=== PATIENT | female | born 1960 | race Caucasian/White ===

== ENCOUNTER 2019-01-14 14:20 | Emergency (ER) | payer BC, OTHER ==
[~2019-01-14] VITALS: Ht 152.4 cm; Wt 56.7 kg
--- NOTE | 2019-01-14 14:26 | NUR ---
pt here with per . pt alert gcs 15. pt went to bathroom before i got pt from w/r. pt points to and c/o bilateral upper quads abd pain x 1 week. associated with nausea w/o vomiting . pt also denies diarrhea but relates increase in bms texture and amount saying she had a stool 3xs on way here. relates most of pain in urq abd. denies blood in stool.denies constipation. denies ua and vaginal c/os. pain rating 8. pt denies dyspnea and no acute sighns of dyspnea noted though pt has slight dry cough she relates to allergies. pt relates pain feels similiar to when she had her gall bladder checked a yr ago and she was told it does not need to come out yet. lungs cta bilaterally. abd soft nondistended tender to palpation rlq only on my exam including the epigastric area. pt instructed npo. done flora pt [id number].
--- NOTE | 2019-01-14 14:56 | ED GI ---
General Chief Complaint: Abdominal/GI Problems Stated Complaint: ABD PAIN Nursing Triage Note: abd pain x 1 week Sepsis Screen: No Definite Risk Source of Information: Patient, Family Exam Limitations: No Limitations History of Present Illness Date Seen by Provider: Jan 14, 2019 Time Seen by Provider: 14:54 Initial Comments This 58-year-old female presents with right upper quadrant pain and nausea for the last week. The patient states the discomfort and symptoms are similar to her Colace cystitis she had 2 years ago. The gallbladder was not removed. Patient denies dysuria frequency or flank pain. She denies vomiting diarrhea or constipation. Patient has had no associated cough or shortness of breath. She denies headache photophobia or stiff neck. Past medical history of significance includes poorly controlled diabetes. Allergies and Home Medications Allergies Coded Allergies: No Known Drug Allergies (Unverified , 01/14/19) Patient Home Medication List Home Medication List Reviewed: Yes Review of Systems Review of Systems Constitutional: No chills, No fever EENTM: No Double Vision Respiratory: Denies Cough Cardiovascular: Denies Chest Pain Gastrointestinal: Abdominal Pain (right upper quadrant); Denies Diarrhea; Nausea; Denies Vomiting Genitourinary: Drainage, Frequency, Flank Pain Musculoskeletal: No back pain Skin: No rash Psychiatric/Neurological: No Symptoms Reported Endocrine: No Symptoms Reported Hematologic/Lymphatic: No Symptoms Reported Past Cuvamrq-Qwighh-Epzwlq Hx Past Med/Social Hx: Reviewed Nursing Past Med/Soc Hx Patient Social History Alcohol Use: Denies Use Recreational Drug Use: No Smoking Status: Never a Smoker Recent Foreign Travel: No Contact w/Someone Who Travel: No Recent Infectious Disease Expo: No Physical Abuse: No Sexual Abuse: No Physical Exam Vital Signs Vital Signs - First Documented 01/14/19 14:26 Temp 98.6 Pulse 88 Resp 16 B/P (MAP) 179/72 (107) Pulse Ox 95 O2 Delivery Room Air Capillary Refill : Less Than 3 Seconds Height/Weight/BMI Height: 5'0" Weight: 125lbs. oz. 56.050346vl; BMI Method:Stated General Appearance: WD/WN, mild distress HEENT: normal ENT inspection Neck: full range of motion, supple Respiratory: lungs clear Cardiovascular: regular rate, rhythm Gastrointestinal: normal bowel sounds, soft, tenderness (right upper quadrant) Extremities: normal range of motion, non-tender, normal inspection Back: normal inspection Neurologic/Psychiatric: no motor/sensory deficits, alert Skin: normal color, warm/dry; No rash Progress/Results/Core Measures Results/Orders Lab Results Laboratory Tests Test 01/14/19 15:01 01/14/19 15:06 Range/Units Urine Color YELLOW Urine Clarity CLEAR Urine pH 8 5-9 Urine Specific Orient 1.015 L 1.016-1.022 Urine Protein NEGATIVE NEGATIVE Urine Glucose (UA) 2+ H NEGATIVE Urine Ketones NEGATIVE NEGATIVE Urine Nitrite NEGATIVE NEGATIVE Urine Bilirubin NEGATIVE NEGATIVE Urine Urobilinogen NORMAL NORMAL MG/DL Urine Leukocyte Esterase 1+ H NEGATIVE Urine RBC (Auto) NEGATIVE NEGATIVE Urine RBC NONE /HPF Urine WBC RARE /HPF Urine Squamous Epithelial Cells 2-5 /HPF Urine Crystals NONE /LPF Urine Bacteria NEGATIVE /HPF Urine Casts NONE /LPF Urine Mucus NEGATIVE /LPF Urine Culture Indicated NO White Blood Count 6.3 4.3-11.0 10^3/uL Red Blood Count 4.34 L 4.35-5.85 10^6/uL Hemoglobin 12.4 11.5-16.0 G/DL Hematocrit 37 35-52 % Mean Corpuscular Volume 86 80-99 FL Mean Corpuscular Hemoglobin 29 25-34 PG Mean Corpuscular Hemoglobin Concent 33 32-36 G/DL Red Cell Distribution Width 13.4 10.0-14.5 % Platelet Count 236 130-400 10^3/uL Mean Platelet Volume 10.5 H 7.4-10.4 FL Neutrophils (%) (Auto) 53 42-75 % Lymphocytes (%) (Auto) 35 12-44 % Monocytes (%) (Auto) 7 0-12 % Eosinophils (%) (Auto) 3 0-10 % Basophils (%) (Auto) 1 0-10 % Neutrophils # (Auto) 3.4 1.8-7.8 X 10^3 Lymphocytes # (Auto) 2.2 1.0-4.0 X 10^3 Monocytes # (Auto) 0.5 0.0-1.0 X 10^3 Eosinophils # (Auto) 0.2 0.0-0.3 10^3/uL Basophils # (Auto) 0.1 0.0-0.1 10^3/uL Sodium Level 137 135-145 MMOL/L Potassium Level 4.8 3.6-5.0 MMOL/L Chloride Level 99 98-107 MMOL/L Carbon Dioxide Level 23 21-32 MMOL/L Anion Gap 15 H 5-14 MMOL/L Blood Urea Nitrogen 23 H 7-18 MG/DL Creatinine 1.09 0.60-1.30 MG/DL Estimat Glomerular Filtration Rate 51 BUN/Creatinine Ratio 21 Glucose Level 210 H 70-105 MG/DL Calcium Level 9.9 8.5-10.1 MG/DL Corrected Calcium 8.5-10.1 MG/DL Total Bilirubin 0.3 0.1-1.0 MG/DL Aspartate Amino Transf (AST/SGOT) 34 5-34 U/L Alanine Aminotransferase (ALT/SGPT) 55 0-55 U/L Alkaline Phosphatase 85 40-136 U/L Total Protein 8.2 6.4-8.2 GM/DL Albumin 4.7 H 3.2-4.5 GM/DL Lipase 55 8-78 U/L My Orders Orders - AYDEN GODINEZ MD Ct Abdomen/Pelvis Wo (01/14/19 14:52) Cbc With Automated Diff (01/14/19 14:52) Comprehensive Metabolic Panel (01/14/19 14:52) Lipase (01/14/19 14:52) Ua Culture If Indicated (01/14/19 14:52) Ns Iv 1000 Ml (Sodium Chloride 0.9%) (01/14/19 15:00) Ondansetron Injection (Zofran Injectio (01/14/19 15:00) Medications Given in ED Current Medications Medications Dose Ordered Sig/Lary Route Start Time Stop Time Status Last Admin Dose Admin Ondansetron HCl 4 mg ONCE ONCE IVP 01/14/19 15:00 01/14/19 15:01 DC 01/14/19 15:09 4 MG Vital Signs/I&O 01/14/19 01/14/19 14:26 16:18 Temp 98.6 97.8 Pulse 88 84 Resp 16 12 B/P (MAP) 179/72 (107) 153/69 (97) Pulse Ox 95 97 O2 Delivery Room Air Room Air Blood Pressure Mean: 107 Progress Progress Note : Time: 16:27 Progress Note The patient's CT then pelvis film demonstrated evidence of acute pathology. The gallbladder was not well visualized because it was contracted. The patient's laboratory evaluation was similarly unremarkable. Patient was treated with 4 mg of Zofran and 50 g of fentanyl IV with good relief of her nausea and pain. I asked that she follow-up closely with her primary care physician, Dr. Estrada tomorrow and return if she had any further problems or questions. Departure Impression Primary Impression: Abdominal pain Qualified Codes: R10.11 - Right upper quadrant pain Additional Impression: Nausea alone Disposition: 01 HOME, SELF-CARE Condition: Improved Departure-Patient Inst. Decision time for Depature: 16:29 Referrals: SADAF LOCO MD (PCP/Family) Primary Care Physician Patient Instructions: Acute Abdomen (Belly Pain), Adult (DC) Add. Discharge Instructions: Zofran and Vicodin as prescribed. Follow-up with Dr. Loco tomorrow. Come back if any problems. All discharge instructions reviewed with patient and/or family. Voiced understanding. Scripts Hydrocodone Bit/Acetaminophen (Hydrocodone/Acetaminophen 5/325mg Tablet) 1 Tab Tab 1-2 EACH PO Q6H PRN for PAIN-MODERATE MDD 10 for 3 Days, #20 TAB 0 Refills Prov: AYDEN GODINEZ MD 01/14/19 Ondansetron (Ondansetron Odt) 4 Mg Tab.rapdis 4 MG PO Q4H PRN for NAUSEA/VOMITING, #14 TAB Prov: AYDEN GODINEZ MD 01/14/19 AYDEN GODINEZ MD Jan 14, 2019 14:56
--- NOTE | 2019-01-14 14:58 | NUR ---
pt to bathroom for ua.
[2019-01-14] MEDS ORDERED: NS IV 1000 ML 1,000 ML IV SCH (15:00)
[2019-01-14] MEDS ORDERED: ONDANSETRON 4 MG/2 ML (SDV) Z0FRAN IVP ONE (15:00)
--- NOTE | 2019-01-14 15:09 | NUR ---
ua and labs to lab byme
[2019-01-14 15:16] LABS: BASOPHILS # (AUTO) 0.1 10^3/uL (0.0-0.1); BASOPHILS % (AUTO) 1 % (0-10); EOSINOPHILS # (AUTO) 0.2 10^3/uL (0.0-0.3); EOSINOPHILS % (AUTO) 3 % (0-10); HEMATOCRIT 37 % (35-52); HEMOGLOBIN 12.4 G/DL (11.5-16.0); LYMPHOCYTES # (AUTO) 2.2 X 10^3 (1.0-4.0); LYMPHOCYTES % (AUTO) 35 % (12-44); MEAN CORPUSCULAR HEMOGLOBIN 29 PG (25-34); MEAN CORPUSCULAR HGB CONC 33 G/DL (32-36); MEAN CORPUSCULAR VOLUME 86 FL (80-99); MEAN PLATELET VOLUME 10.5 FL (7.4-10.4); MONOCYTES # (AUTO) 0.5 X 10^3 (0.0-1.0); MONOCYTES % (AUTO) 7 % (0-12); NEUTROPHILS # (AUTO) 3.4 X 10^3 (1.8-7.8); NEUTROPHILS % (AUTO) 53 % (42-75); PLATELET COUNT 236 10^3/uL (130-400); RED CELL DISTRIBUTION WIDTH 13.4 % (10.0-14.5); WHITE BLOOD COUNT 6.3 10^3/uL (4.3-11.0)
[2019-01-14 15:16] LABS: BILIRUBIN,URINE NEGATIVE (NEGATIVE); CLARITY,URINE CLEAR; COLOR,URINE YELLOW; GLUCOSE, URINE (UA) 2+ (NEGATIVE); KETONES,URINE NEGATIVE (NEGATIVE); LEUKOCYTE ESTERASE ,URINE 1+ (NEGATIVE); NITRITE,URINE NEGATIVE (NEGATIVE); PH,URINE 8 (5-9); PROTEIN,URINE NEGATIVE (NEGATIVE); UROBILINOGEN,URINE NORMAL (NORMAL)
[2019-01-14 15:28] LABS: BACTERIA,URINE NEGATIVE /HPF; WBC,URINE RARE /HPF
[2019-01-14 15:34] LABS: ALANINE AMINOTRANSFERASE 55 U/L (0-55); ALBUMIN 4.7 GM/DL (3.2-4.5); ALKALINE PHOSPHATASE 85 U/L (40-136); BILIRUBIN,TOTAL 0.3 MG/DL (0.1-1.0); BUN/CREATININE RATIO 21; CALCIUM 9.9 MG/DL (8.5-10.1); CARBON DIOXIDE 23 MMOL/L (21-32); CHLORIDE 99 MMOL/L (98-107); CREATININE SERUM 1.09 MG/DL (0.60-1.30); GFR ESTIMATED 51; GLUCOSE 210 MG/DL (70-105); LIPASE 55 U/L (8-78); POTASSIUM 4.8 MMOL/L (3.6-5.0); SODIUM 137 MMOL/L (135-145); TOTAL PROTEIN 8.2 GM/DL (6.4-8.2)
--- NOTE | 2019-01-14 16:06 | NUR ---
pt to bathroom. i was going to save a bm in case it was diarrhea. pt had 1 very small piece bm that was normal looking solid brown. pt says that is what shes been doing. none saved.
--- NOTE | 2019-01-14 16:16 | NUR ---
pt remains alert gcs 15. not in room currently. pt still c/o abd pain rating 7. denies nausea and no v/d noted in er visit thus far. denies dyspnea and no acute sighns of dyspnea noted. ivf has 175 ml gone from the liter.
--- NOTE | 2019-01-14 16:17 | Diagnostic Imaging Report ---
PROCEDURE: CT abdomen and pelvis without contrast. TECHNIQUE: Multiple contiguous axial images were obtained through the abdomen and pelvis without the use of intravenous contrast. Auto Exposure Controls were utilized during the CT exam to meet ALARA standards for radiation dose reduction. INDICATION: Upper abdominal pain. COMPARISON: None available. FINDINGS: Absence of intravenous contrast decreases sensitivity for detection of lymphadenopathy, focal lesions and vascular pathology. There is mild focal bronchiectasis in the medial basal segment of the right lower lobe, with ill-defined surrounding consolidation. No pleural effusion. Visualized heart is normal in size. The liver, spleen, pancreas, and adrenal glands are unremarkable. The gallbladder is contracted and not well evaluated. There is no calcified gallstone, gallbladder wall thickening, or pericholecystic fluid. No biliary ductal dilatation is demonstrated. The kidneys are symmetric in size, without evidence of hydronephrosis on either side. Punctate bilateral nonobstructing calyceal calculi are demonstrated in both collecting systems. There are multiple right renal cysts. No abnormality in the visualized ureters. The small bowel and colon are normal in course and caliber, without evidence of wall thickening or obstruction. The appendix is not definitely visualized and presumably surgically absent. There is no pneumoperitoneum, abdominal free fluid, or loculated collection. There is mild calcified atherosclerotic plaque involving the abdominal aorta, without aneurysmal dilatation. Marked vascular calcifications are noted throughout the abdomen. No lymphadenopathy is appreciated. No bladder abnormality is demonstrated. There is a bulky fibroid uterus, with multiple partially calcified fibroids demonstrated. No pelvic free fluid or adnexal mass is appreciated. The abdominal wall is unremarkable. Degenerative changes involve the spine. No acute osseous abnormality is identified. IMPRESSION: No acute abdominal or pelvic pathology. No findings to account for the patient's symptoms. Incidental and chronic findings are detailed above. Dictated by: Dictated on workstation # [id number]
[2019-01-14 16:18] VITALS: BP 153/69
[2019-01-14] MEDS ORDERED: fentaNYL INJECTION 100 MCG/2 ML AMP IVP ONE (16:30)
[2019-01-14] MEDS ORDERED: ONDA4TAB11 PO (16:31)
[2019-01-14] MEDS ORDERED: ACHD5005 PO (16:33)
[2019-01-14 16:43] VITALS: BP 153/69
--- NOTE | 2019-01-14 16:43 | NUR ---
d/c instructions to pt. told to read all papers. scripts paper only given. pt left in w/c i took pt to w/r where been. told pt feels woozy from iv pain meds recently given. pt knows f/u. i went over the handtyped by information on the chart. iv d/cd by me prior to d/c.
== END 2019-01-14 16:43 | disposition home or self-care (01) ==
LOC: ER 14:22
DX: R10.11 Right upper quadrant pain (principal); R11.0 Nausea
CPT/HCPCS: 36415; 74176; 80053; 81000; 83690; 85025

== ENCOUNTER 2020-03-22 10:27 | Inpatient (IN) | payer BC ==
[~2020-03-22] VITALS: Ht 152 cm; Wt 59.6 kg
[~2020-03-22 10:27] MED LIST: ACHD5005 PO; ONDA4TAB11 PO
[2020-03-22] MEDS ORDERED: NITROGLYCERIN 0.4 MG SL TABS BTL 25'S SL PRN ×2 (11:00→15:30)
[2020-03-22] MEDS ORDERED: ASPIRIN 81 MG CHEW (CHILDREN'S ASA) PO ONE ×2 (11:00→16:00)
--- NOTE | 2020-03-22 11:00 | ED Chest Pain ---
General Chief Complaint: Chest Pain Stated Complaint: CHEST PAIN,NAUSEA, SOA, LT ARM NUMBNESS Nursing Triage Note: Has had intermittent chest pain since 1830 last night. Took tums with no relief. Associated with nausea, and is short of breath with walking. Has hx of HTN and diabetes. No previous heart issues. Is currently not having any pain, but describes the pain as pressure. Left arm is numb. Complaining of a headache. Has been recently sick with a sinus infection and was on antibiotics. Nursing Sepsis Screen: No Definite Risk Source: patient Exam Limitations: no limitations History of Present Illness Date Seen by Provider: Mar 22, 2020 Time Seen by Provider: 10:41 Initial Comments Patient is a 59-year-old female who presents to the emergency room today with a chief complaint of substernal chest pain and pressure. Patient states that she has had a sinus infection for the last couple of weeks but for the last couple of months has had intermittent chest pressure. Patient states that today the pain is radiating into her neck on the right side and also into her left arm. Patient describes numbness in her left arm. She has had some nausea associated with it as well as shortness of breath. Patient states that this seems to be exertional that her symptoms come on when she is doing something and tend to improve when she is at rest. Patient has a history of diabetes, longstanding with associated diabetic retinopathy. Patient states that her parents both at a young age. Her mother in her 50s from diabetes complications her father in his late 40s from cardiac complications. Bedside twelve-lead EKG shows a left bundle branch block, likely left atrial e nlargement; rate of 90, QTc 515, IA 150. Patient tells me that she also has a history of hypertension and hypercholesterolemia. Currently rates her chest pain at a "6". Patient recently finished 7d course of amoxicillin for "sinusitis". All other review of systems reviewed and negative except as stated. Allergies and Home Medications Allergies Coded Allergies: No Known Drug Allergies (Unverified , 01/14/19) Home Medications Hydrocodone Bit/Acetaminophen 1 Tab Tab, 1-2 EACH PO Q6H PRN for PAIN-MODERATE Prescribed by: AYDEN GODINEZ MD on 01/14/19 1633 Ondansetron 4 Mg Tab.rapdis, 4 MG PO Q4H PRN for NAUSEA/VOMITING Prescribed by: AYDEN GODINEZ MD on 01/14/19 1631 Patient Home Medication List Home Medication List Reviewed: Yes Review of Systems Review of Systems Constitutional: malaise, weakness (Generalized weakness) EENTM: Blurred Vision (Chronic, longstanding secondary to diabetic retinopathy, history of cataracts) Respiratory: Cough, SOA With Exertion Cardiovascular: Chest Pain Gastrointestinal: No Symptoms Reported Genitourinary: Burning (3 days) Musculoskeletal: no symptoms reported Skin: no symptoms reported Psychiatric/Neurological: Anxiety All Other Systems Reviewed Negative Unless Noted: Yes Past Dhwstaq-Iopuuv-Frzuse Hx Patient Social History Smoking Status: Never a Smoker Recent Foreign Travel: No Contact w/Someone Who Travel: No Recent Infectious Disease Expo: No Seasonal Allergies Seasonal Allergies: Yes Past Medical History Appendectomy High Cholesterol, Hypertension Diabetes, Insulin dep Depression Physical Exam Vital Signs Vital Signs - First Documented 03/22/20 10:39 Temp 36.8 Pulse 89 Resp 14 B/P (MAP) 191/76 (114) Pulse Ox 99 Capillary Refill : Less Than 3 Seconds Height, Weight, BMI Height: 5'0" Weight: 125lbs. oz. 56.023759ji; 25.00 BMI Method:Stated General Appearance: No Apparent Distress, Mild Distress Neck: Full Range of Motion Respiratory: Chest Non Tender, Lungs Clear, Normal Breath Sounds, No Accessory Muscle Use, No Respiratory Distress Cardiovascular: Regular Rate, Rhythm, No Edema, No Murmur, Normal Peripheral Pulses (2+ bilateral radial pulses) Gastrointestinal: Normal Bowel Sounds, Non Tender, Soft Extremity: Normal Capillary Refill, Normal Inspection, Normal Range of Motion Neurologic/Psychiatric: Alert, Oriented x3, No Motor/Sensory Deficits, Normal Mood/Affect Skin: Normal Color, Warm/Dry Critical Care Note Critical Care Start Time: 10:41 Stop Time: 12:00 Total Time (minutes) 40min critical care time in the evaluation and management of unstable angina; review of medical records, discussion with cardiology, admitting doctor. Management of chest pain and heparin. Progress/Results/Core Measures Results/Orders Lab Results Laboratory Tests Test 03/22/20 10:45 Range/Units White Blood Count 7.1 4.3-11.0 10^3/uL Red Blood Count 4.35 4.35-5.85 10^6/uL Hemoglobin 12.2 11.5-16.0 G/DL Hematocrit 37 35-52 % Mean Corpuscular Volume 84 80-99 FL Mean Corpuscular Hemoglobin 28 25-34 PG Mean Corpuscular Hemoglobin Concent 33 32-36 G/DL Red Cell Distribution Width 13.8 10.0-14.5 % Platelet Count 249 130-400 10^3/uL Mean Platelet Volume 10.3 7.4-10.4 FL Immature Granulocyte % (Auto) 0 % Neutrophils (%) (Auto) 61 42-75 % Lymphocytes (%) (Auto) 28 12-44 % Monocytes (%) (Auto) 7 0-12 % Eosinophils (%) (Auto) 3 0-10 % Basophils (%) (Auto) 1 0-10 % Neutrophils # (Auto) 4.3 1.8-7.8 X 10^3 Lymphocytes # (Auto) 2.0 1.0-4.0 X 10^3 Monocytes # (Auto) 0.5 0.0-1.0 X 10^3 Eosinophils # (Auto) 0.2 0.0-0.3 10^3/uL Basophils # (Auto) 0.1 0.0-0.1 10^3/uL Immature Granulocyte # (Auto) 0.0 0.0-0.1 10^3/uL Prothrombin Time 12.3 12.2-14.7 SEC INR Comment 0.9 0.8-1.4 Activated Partial Thromboplast Time 26 24-35 SEC Sodium Level 140 135-145 MMOL/L Potassium Level 3.9 3.6-5.0 MMOL/L Chloride Level 102 98-107 MMOL/L Carbon Dioxide Level 26 21-32 MMOL/L Anion Gap 12 5-14 MMOL/L Blood Urea Nitrogen 18 7-18 MG/DL Creatinine 0.86 0.60-1.30 MG/DL Estimat Glomerular Filtration Rate > 60 BUN/Creatinine Ratio 21 Glucose Level 130 H 70-105 MG/DL Calcium Level 9.5 8.5-10.1 MG/DL Corrected Calcium 9.1 8.5-10.1 MG/DL Magnesium Level 2.0 1.6-2.4 MG/DL Total Bilirubin 0.3 0.1-1.0 MG/DL Aspartate Amino Transf (AST/SGOT) 40 H 5-34 U/L Alanine Aminotransferase (ALT/SGPT) 43 0-55 U/L Alkaline Phosphatase 86 40-136 U/L Myoglobin 40.6 10.0-92.0 NG/ML Troponin I < 0.30 <0.30 NG/ML Total Protein 7.8 6.4-8.2 GM/DL Albumin 4.5 3.2-4.5 GM/DL My Orders Orders - LIZETH LOUIS MD Cbc With Automated Diff (03/22/20 10:50) Magnesium (03/22/20 10:50) Chest 1 View Ap/Pa Only (03/22/20 10:50) Ekg Tracing (03/22/20 10:50) Comprehensive Metabolic Panel (03/22/20 10:50) Myoglobin Serum (03/22/20 10:50) Protime With Inr (03/22/20 10:50) Partial Thromboplastin Time (03/22/20 10:50) O2 (03/22/20 10:50) Monitor-Rhythm Ecg Trace Only (03/22/20 10:50) Lipid Panel (03/23/20 06:00) Aspirin Chewable Tablet (Baby Aspirin Ch (03/22/20 11:00) Nitroglycerin 0.4 Mg Btl 25's (Nitrostat (03/22/20 11:00) Ed Iv/Invasive Line Start (03/22/20 10:50) Heparin Injection (Heparin Injection) (03/22/20 11:00) Troponin I Fs (03/22/20 10:50) Heparin Drip 07807 Unit/500ml (Heparin (03/22/20 12:34) Medications Given in ED Current Medications Medications Dose Ordered Sig/Lary Route Start Time Stop Time Status Last Admin Dose Admin Aspirin 324 mg ONCE ONCE PO 03/22/20 11:00 03/22/20 11:01 DC 03/22/20 11:01 324 MG Heparin Sodium (Porcine) 5,000 units ONCE ONCE IV 03/22/20 11:00 03/22/20 11:01 DC 03/22/20 11:01 5,000 UNITS Nitroglycerin 0.4 mg UD PRN SL 03/22/20 11:00 03/22/20 11:01 0.4 MG Vital Signs/I&O 03/22/20 10:39 Temp 36.8 Pulse 89 Resp 14 B/P (MAP) 191/76 (114) Pulse Ox 99 Blood Pressure Mean: 114 Progress Progress Note : Time: 11:04 Progress Note 59-year-old with a history of chest pain. Unstable angina presentation. Evaluation today includes a physical exam with the chest pain protocols. Patient is treated with baby aspirin, sublingual nitroglycerin and heparin bolus and drip. Patient rated her pain presentation a "6". Plan of care is to heparinize the patient and have her admitted pending laboratory studies. Patient does have a left bundle branch block on EKG with no old EKG for comparison. This is as well concerning for unstable angina/N STEMI. [address] Corbin on for [facility]. Accepts the patient for admission. Heparin drip initiated prior to transfer Initial ECG Impression Date: Mar 22, 2020 Initial ECG Impression Time: 10:32 Initial ECG Rate: 90 Initial ECG Rhythm: Normal Sinus Initial ECG Intervals: IA (150) Initial ECG Intervals Left bundle branch block Initial ECG Comparisson: No Previous ECG Available Diagnostic Imaging Diagonstic Imaging: Xray Plain Films/CT/US/NM/MRI: chest Comments [facility], [place] NAME: AGUILAR MAYNARD [facility] REC#: [id number] PT STATUS: REG ER : 1960 PHYSICIAN: LIZETH LOUIS MD ADMIT DATE: 03/22/20/ER FS Draft Date of Exam:03/22/20 CHEST 1 VIEW AP/PA ONLY Indication: Chest pain with cough and dyspnea. Comparison: None. Discussion: Single portable upright view of the chest was obtained. Patchy infiltrates are noted within the lung bases, concerning for pneumonia. Viral pneumonia should be excluded clinically. No pleural fluid or pneumothorax. Normal heart size. No osseous abnormality. Impression: 1. Patchy bibasilar infiltrates consistent with pneumonia. Viral pneumonia should be excluded clinically. Dictated on workstation # [id number] Dict: 03/22/20 1148 Trans: 03/22/20 1149 [facility] [id number] Interpreted by: LYNNE BLANCAS MD Electronically signed by: Departure Communication (Admissions) Time/Spoke to Consulting Phy: 11:41 Dr Chambers Discussed with Dr. Andino who recommends the patient be admitted to the ICU. Impression Primary Impression: Unstable angina Disposition: ADMITTED INPATIENT Condition: Stable Admissions Decision to Admit Reason: Admit from ER (General) Transfer Transfer Reason: Exceeds level of care Method of Transfer: EMS Departure-Patient Inst. Referrals: SADAF SEE MD (PCP/Family) Primary Care Physician LIZETH LOUIS MD Mar 22, 2020 11:00
[2020-03-22 11:07] LABS: BASOPHILS % (AUTO) 1 % (0-10); EOSINOPHILS % (AUTO) 3 % (0-10); HEMATOCRIT 37 % (35-52); HEMOGLOBIN 12.2 G/DL (11.5-16.0); LYMPHOCYTES % (AUTO) 28 % (12-44); MEAN CORPUSCULAR HEMOGLOBIN 28 PG (25-34); MEAN CORPUSCULAR HGB CONC 33 G/DL (32-36); MEAN CORPUSCULAR VOLUME 84 FL (80-99); MEAN PLATELET VOLUME 10.3 FL (7.4-10.4); MONOCYTES % (AUTO) 7 % (0-12); PLATELET COUNT 249 10^3/uL (130-400); WHITE BLOOD COUNT 7.1 10^3/uL (4.3-11.0)
[2020-03-22 11:08] LABS: BASOPHILS # (AUTO) 0.1 10^3/uL (0.0-0.1); EOSINOPHILS # (AUTO) 0.2 10^3/uL (0.0-0.3); MONOCYTES # (AUTO) 0.5 X 10^3 (0.0-1.0); NEUTROPHILS # (AUTO) 4.3 X 10^3 (1.8-7.8); NEUTROPHILS % (AUTO) 61 % (42-75)
[2020-03-22 11:19] LABS: SODIUM 140 MMOL/L (135-145)
[2020-03-22 11:20] LABS: ALANINE AMINOTRANSFERASE 43 U/L (0-55); ALBUMIN 4.5 GM/DL (3.2-4.5); ALKALINE PHOSPHATASE 86 U/L (40-136); BILIRUBIN,TOTAL 0.3 MG/DL (0.1-1.0); BUN/CREATININE RATIO 21; CALCIUM 9.5 MG/DL (8.5-10.1); CARBON DIOXIDE 26 MMOL/L (21-32); CHLORIDE 102 MMOL/L (98-107); CREATININE SERUM 0.86 MG/DL (0.60-1.30); GFR ESTIMATED > 60; GLUCOSE 130 MG/DL (70-105); POTASSIUM 3.9 MMOL/L (3.6-5.0); TOTAL PROTEIN 7.8 GM/DL (6.4-8.2)
[2020-03-22 11:22] LABS: INR 0.9 (0.8-1.4); PROTHROMBIN TIME PATIENT 12.3 SEC (12.2-14.7)
--- NOTE | 2020-03-22 11:49 | Diagnostic Imaging Report ---
Indication: Chest pain with cough and dyspnea. Comparison: None. Discussion: Single portable upright view of the chest was obtained. Patchy infiltrates are noted within the lung bases, concerning for pneumonia. Viral pneumonia should be excluded clinically. No pleural fluid or pneumothorax. Normal heart size. No osseous abnormality. Impression: 1. Patchy bibasilar infiltrates consistent with pneumonia. Viral pneumonia should be excluded clinically. Dictated by: Dictated on workstation # [id number]
[2020-03-22] MEDS ORDERED: HEParin DRIP 25000 UNIT/500ML 500 ML IV ONE ×2 (12:34→15:30)
[2020-03-22] MEDS ORDERED: morphine INJ 4 MG/ML 1 ML (VIAL/SYRINGE) IV PRN (15:30)
[2020-03-22] MEDS ORDERED: HEParin DRIP 25000 UNIT/500ML 500 ML IV SCH (15:30)
--- NOTE | 2020-03-22 15:58 | Consultation-Cardiology ---
HPI-Cardiology Cardiology Consultation: Date of Consultation 03/22/20 Time Seen by a Provider: 15:40 Date of Admission Attending Physician Ayden Corbin MD Admitting Physician Levon Loco MD Consulting Physician RHODA DIEGO MD, MA, FACP, FACC, FSCAI, CCDS HPI: Chief Complaint: CC: Chest discomfort HPI 59 yo woman with several days of intermittent chest discomfort: nearly daily, worst today, midsternal, pressure-like, mod to sev, radiation today to L shoulder and L neck, not associated with other symptoms, partially responsive to nitro in the ER, lasting up to several hours. No shortness of breath or palp or syncope or swelling Review of Systems-Cardiology Review of Systems Constitutional: malaise; No tiredness, No weight loss, No weight gain Eyes: No vision change Ears/Nose/Throat: No ear discharge, No nasal drainage, No recent hearing loss Respiratory: As described under HPI Cardiovascular: As described under HPI Gastrointestinal: No diarrhea, No nausea, No vomiting Genitourinary: No dysuria, No hematuria Musculoskeletal: No back pain, No joint pain Skin: No rash, No ulcerations Psychiatric/Neurological: No seizure, No focal weakness, No syncope Hematologic: No bleeding abnormalities WQU-Whejrh-Qrmazf Hx Past Medical History PMH As described under Assessment. Family Medical History Family Medical History: Does not report fam h/o early CAD Allergies and Home Medications Allergies Coded Allergies: No Known Drug Allergies (Unverified , 01/14/19) Home Medications Hydrocodone Bit/Acetaminophen 1 Tab Tab, 1-2 EACH PO Q6H PRN for PAIN-MODERATE Prescribed by: AYDEN GODINEZ MD on 01/14/19 1633 Ondansetron 4 Mg Tab.rapdis, 4 MG PO Q4H PRN for NAUSEA/VOMITING Prescribed by: AYDEN GODINEZ MD on 01/14/19 1631 Patient Home Medication List Home Medication List Reviewed: Yes Physical Exam-Cardiology Physical Exam Vital Signs/I&O 03/22/20 10:39 Temp 36.8 Pulse 89 Resp 14 B/P (MAP) 191/76 (114) Pulse Ox 99 Capillary Refill : Less Than 3 Seconds Constitutional: AAO x 3, well-developed, well-nourished HEENT: EOMI, hearing is well preserved Neck: carotid pulses are 2 + bilaterally, with good upstrokes Respiratory: No accessory muscle use; other (good bilateral air entry) Cardiovascular: regular rate-rhythm, S1 and S2, systolic murmur (soft VERONICA at card base) Gastrointestinal: No tender; soft; No guarding, No rebound; audible bowel sounds Extremities: No clubbing, No cyanosis, No significant edema Neurologic/Psychiatric: oriented x 3, other (moves all limbs equally) Skin: No rash on exposed areas, No ulcerations on exposed areas Data Review Labs Laboratory Tests 03/22/20 10:45: White Blood Count 7.1, Red Blood Count 4.35, Hemoglobin 12.2, Hematocrit 37, Mean Corpuscular Volume 84, Mean Corpuscular Hemoglobin 28, Mean Corpuscular Hemoglobin Concent 33, Red Cell Distribution Width 13.8, Platelet Count 249, Mean Platelet Volume 10.3, Immature Granulocyte % (Auto) 0, Neutrophils (%) (Auto) 61, Lymphocytes (%) (Auto) 28, Monocytes (%) (Auto) 7, Eosinophils (%) (Auto) 3, Basophils (%) (Auto) 1, Neutrophils # (Auto) 4.3, Lymphocytes # (Auto) 2.0, Monocytes # (Auto) 0.5, Eosinophils # (Auto) 0.2, Basophils # (Auto) 0.1, Immature Granulocyte # (Auto) 0.0, Prothrombin Time 12.3, INR Comment 0.9, Activated Partial Thromboplast Time 26, Sodium Level 140, Potassium Level 3.9, Chloride Level 102, Carbon Dioxide Level 26, Anion Gap 12, Blood Urea Nitrogen 18, Creatinine 0.86, Estimat Glomerular Filtration Rate > 60, BUN/Creatinine Ratio 21, Glucose Level 130H, Calcium Level 9.5, Corrected Calcium 9.1, Magnesium Level 2.0, Total Bilirubin 0.3, Aspartate Amino Transf (AST/SGOT) 40H, Alanine Aminotransferase (ALT/SGPT) 43, Alkaline Phosphatase 86, Myoglobin 40.6, Troponin I < 0.30, Total Protein 7.8, Albumin 4.5 03/22/20 15:42: Laboratory Tests 03/22/20 10:45 A/P-Cardiology Assessment/Admission Diagnosis Chest discomfort of undetermined etiology LBBB DM II H/o hypertension Discussion and Recomendations * Treat with bb and ASA and enoxaparin * Serial enzymes and ECG * If evidence of ACS, then cath * If no evidence of ACS, the noninvasive risk RHODA Schmidt MD [facility] CCDS Mar 22, 2020 15:58
[2020-03-22 16:01] VITALS: BP 191/76
[2020-03-22 16:02] LABS: INR 0.9 (0.8-1.4); PROTHROMBIN TIME PATIENT 12.7 SEC (12.2-14.7)
[2020-03-22] MEDS: ENOXAPARIN 60 MG/0.6 ML (LOVENOX) SYR SC SCH (16:38)
[2020-03-22] MEDS: NS IV 1000 ML 1,000 ML IV SCH (16:39)
[2020-03-22] MEDS: inSUlin ASPART (NovoLOG) 1 UNIT/0.01 ML (CHARGE PER UNIT) SC SCH ×2 (16:39→20:25)
[2020-03-22] MEDS ORDERED: FLU QUADRIvalent (3YOA+) 60 mcg/0.5 ml 2020-21 (AFLURIA) IM ONE (16:45)
[2020-03-22] MEDS: RT-ALBUTEROL SULF 2.5 MG/3 ML PRE-MIX VIAL INH SCH (20:41)
[2020-03-23 03:08] LABS: BASOPHILS # (AUTO) 0.1 10^3/uL (0.0-0.1); BASOPHILS % (AUTO) 1 % (0-10); EOSINOPHILS # (AUTO) 0.2 10^3/uL (0.0-0.3); EOSINOPHILS % (AUTO) 3 % (0-10); HEMATOCRIT 34 % (35-52); LYMPHOCYTES # (AUTO) 2.8 10^3/uL (1.0-4.0); LYMPHOCYTES % (AUTO) 37 % (12-44); MEAN CORPUSCULAR HEMOGLOBIN 28 pg (25-34); MEAN CORPUSCULAR HGB CONC 32 g/dL (32-36); MEAN CORPUSCULAR VOLUME 87 fL (80-99); MEAN PLATELET VOLUME 10.7 fL (9.0-12.2); MONOCYTES # (AUTO) 0.7 10^3/uL (0.0-1.0); MONOCYTES % (AUTO) 9 % (0-12); NEUTROPHILS % (AUTO) 51 % (42-75); PLATELET COUNT 218 10^3/uL (130-400); WHITE BLOOD COUNT 7.8 10^3/uL (4.3-11.0)
[2020-03-23 03:26] LABS: CALCIUM 8.5 MG/DL (8.5-10.1); CREATININE SERUM 0.98 MG/DL (0.60-1.30); POTASSIUM 5.4 MMOL/L (3.6-5.0)
[2020-03-23] MEDS: NS IV 1000 ML 1,000 ML IV SCH ×2 (03:40→12:19)
[2020-03-23] MEDS: ENOXAPARIN 60 MG/0.6 ML (LOVENOX) SYR SC SCH (03:40)
--- NOTE | 2020-03-23 04:25 | NUR ---
0350- Patient's blood sugar on morning labs is 65, patient given orange juice and peanut butter with crackers. 0425- This RN checked fingerstick glucose, blood sugar 131. Will continue to monitor.
[2020-03-23] MEDS: inSUlin ASPART (NovoLOG) 1 UNIT/0.01 ML (CHARGE PER UNIT) SC SCH ×2 (05:05→11:18)
[2020-03-23] MEDS ORDERED: MAGNESIUM 1 GM/100 ML IVPB 100 ML IV SCH (06:00)
[2020-03-23] MEDS ORDERED: KCL 20 MEQ TAB (K-DUR) PO SCH (06:00)
[2020-03-23] MEDS ORDERED: POTASSIUM CL 10MEQ/50ML IVPB 50 ML IV SCH (06:00)
--- NOTE | 2020-03-23 06:38 | Pulmonary Consultation ---
History of Present Illness History of Present Illness Date Seen by Provider: Mar 23, 2020 Time Seen by Provider: 06:35 Date of Admission Allergies and Home Medications Allergies Coded Allergies: No Known Drug Allergies (Unverified , 01/14/19) Home Medications Hydrocodone Bit/Acetaminophen 1 Tab Tab, 1-2 EACH PO Q6H PRN for PAIN-MODERATE Prescribed by: AYDEN GODINEZ MD on 01/14/19 1633 Ondansetron 4 Mg Tab.rapdis, 4 MG PO Q4H PRN for NAUSEA/VOMITING Prescribed by: AYDEN GODINEZ MD on 01/14/19 1631 Past Qvoprew-Zqzvdh-Ivtmcw Hx Patient Social History Alcohol Use: Denies Use Recreational Drug Use: No Smoking Status: Never a Smoker 2nd Hand Smoke Exposure: No Recent Foreign Travel: No Contact w/Someone Who Travel: No Recent Infectious Disease Expo: No Seasonal Allergies Seasonal Allergies: Yes Past Medical History Surgeries: Yes (rotator cuff; laser eye surgery) Appendectomy, Orthopedic Respiratory: No High Cholesterol, Hypertension Neurological: Yes Headaches /Migraines Genitourinary: No Gastrointestinal: No Musculoskeletal: Yes Arthritis Endocrine: Yes Diabetes, Insulin dep HEENT: No Cancer: No Psychosocial: Yes Depression Integumentary: No Review of Systems Time Seen by Provider: 06:38 Sepsis Event Evaluation Height, Weight, BMI Height: 5'0" Weight: 125lbs. oz. 56.079256qy; 25.00 BMI Method:Stated Exam Exam Vital Signs Date Time Temp Pulse Resp B/P (MAP) Pulse Ox O2 Delivery O2 Flow Rate FiO2 03/23/20 06:00 75 126/67 95 Room Air 03/23/20 05:00 81 128/68 98 Room Air 03/23/20 04:00 98 Room Air 03/23/20 04:00 78 144/72 97 Room Air 03/23/20 03:38 36.4 03/23/20 03:00 82 124/56 95 Room Air 03/23/20 02:00 73 104/59 97 Room Air 03/23/20 01:00 80 03/23/20 01:00 74 103/54 94 Room Air 03/23/20 00:00 77 92/60 98 Room Air 03/23/20 00:00 98 Room Air 03/23/20 00:00 36.5 03/22/20 23:00 79 103/52 91 Room Air 03/22/20 22:00 87 117/63 95 Room Air 03/22/20 21:00 89 143/75 99 Room Air 03/22/20 20:41 99 Room Air 03/22/20 20:00 98 Room Air 03/22/20 20:00 92 151/60 100 Room Air 03/22/20 19:39 37.3 87 103/41 98 Room Air 03/22/20 19:00 92 03/22/20 18:00 87 113/41 92 Room Air 03/22/20 17:39 97 92/60 100 Room Air 03/22/20 16:01 36.8 89 99 03/22/20 16:00 90 117/64 100 Room Air 03/22/20 15:00 99 Room Air 03/22/20 14:50 36.8 86 159/94 100 Room Air 03/22/20 14:10 91 17 179/73 99 03/22/20 10:39 36.8 89 14 191/76 (114) 99 I & O 03/23/20 07:00 Intake Total 1850 ml Output Total 750 ml Balance 1100 ml Height & Weight Height: 5'0" Weight: 125lbs. oz. 56.925937it; 25.00 BMI Method:Stated General Appearance: No Apparent Distress, Mild Distress Neck: Full Range of Motion Respiratory: Chest Non Tender, Lungs Clear, Normal Breath Sounds, No Accessory Muscle Use, No Respiratory Distress Cardiovascular: Regular Rate, Rhythm, No Edema, No Murmur, Normal Peripheral Pulses (2+ bilateral radial pulses) Capillary Refill: Less Than 3 Seconds Extremity: Normal Capillary Refill, Normal Inspection, Normal Range of Motion Neurologic/Psychiatric: Alert, Oriented x3, No Motor/Sensory Deficits, Normal Mood/Affect Skin: Normal Color, Warm/Dry Results Lab Laboratory Tests 03/22/20 10:45 03/23/20 02:55 Assessment/Plan Assessment/Plan Chest discomfort -CXR shows atelectasis vs infiltrate. No leukocytosis -Check BNP, PCT, UA LBB -Cardiology following DMII = LISETH ZAVALA DO Mar 23, 2020 06:38
[2020-03-23] MEDS ORDERED: FUROSEMIDE 40 MG/4 ML INJ (LASIX) IVP ONE (06:45)
[2020-03-23] MEDS: RT-ALBUTEROL SULF 2.5 MG/3 ML PRE-MIX VIAL INH SCH (07:44)
[2020-03-23] MEDS ORDERED: ASPIRIN 325 MG (5 GR) TABLET PO SCH (09:00)
[2020-03-23] MEDS ORDERED: ASPIRIN 81 MG CHEW (CHILDREN'S ASA) PO SCH (09:00)
--- NOTE | 2020-03-23 09:30 | Diagnostic Imaging Report ---
EXAMINATION: Chest radiograph, portable AP view. DATE: 03/23/2020 9:14 AM hours. INDICATION: 59-year-old female, dyspnea. COMPARISON: March 22, 2020. FINDINGS: Stable overall appearance of the cardiomediastinal silhouette. There is no identified pneumothorax. There is no large pleural effusion. There are mildly prominent pulmonary vascular markings. There are anchors in the right humeral head. IMPRESSION: 1. Mildly prominent pulmonary vascular markings which may reflect mild interstitial edema. Atypical infectious etiology is in the differential diagnosis. Dictated by: Dictated on workstation # [id number]
[2020-03-23 10:04] LABS: BILIRUBIN,URINE NEGATIVE (NEGATIVE); CLARITY,URINE CLEAR; COLOR,URINE YELLOW; GLUCOSE, URINE (UA) NEGATIVE (NEGATIVE); KETONES,URINE NEGATIVE (NEGATIVE); LEUKOCYTE ESTERASE ,URINE NEGATIVE (NEGATIVE); NITRITE,URINE NEGATIVE (NEGATIVE); PH,URINE 6.5 (5-9); PROTEIN,URINE NEGATIVE (NEGATIVE)
[2020-03-23 10:42] LABS: BACTERIA,URINE TRACE /HPF; RENAL EPITHELIAL CELLS,URINE RARE /HPF
[2020-03-23 11:02] LABS: CALCIUM OXALATE CRYSTALS,UR RARE /LPF
--- NOTE | 2020-03-23 12:06 | Short Stay Summary-Hospitalist ---
History of Present Illness HPI/Chief Complaint Patient is a 59-year-old female who presents to the emergency room today with a chief complaint of substernal chest pain and pressure. Patient states that she has had a sinus infection for the last couple of weeks but for the last couple of months has had intermittent chest pressure. Patient states that today the pain is radiating into her neck on the right side and also into her left arm. Patient describes numbness in her left arm. She has had some nausea associated with it as well as shortness of breath. Patient states that this seems to be exertional that her symptoms come on when she is doing something and tend to improve when she is at rest. Patient has a history of diabetes, longstanding with associated diabetic retinopathy. Patient states that her parents both at a young age. Her mother in her 50s from diabetes complications her father in his late 40s from cardiac complications. Bedside twelve-lead EKG shows a left bundle branch block, likely left atrial enlargement; rate of 90, QTc 515, MO 150. Patient tells me that she also has a history of hypertension and hypercholest erolemia. Currently rates her chest pain at a "6". Patient recently finished 7d course of amoxicillin for "sinusitis upon my arrival in the unit patient reports she is still having some chest pressure not as bad as last night. Serial troponin levels were negative and chest x-ray revealed some patchy infiltrate she denied chills or fever and oxygen saturation on room air was 96-97 percent. Rapid COVID testing was negative. Vital signs were stable and she was afebrile. She was discharged adv ised to take it easy due to likely viral bronchiolitis and that even though there was no evidence of for COVID she can still be contagious set appropriate social distancing etc. was recommended. She was advised to follow-up with her physician next week. She is to continue her home medication unchanged. Date Seen 03/23/20 Time Seen by a Provider: 10:00 Attending Physician Ayden Corbin MD PCP Sadaf Loco MD Referring Physician Date of Admission Mar 22, 2020 at 14:48 Home Medications & Allergies Home Medications Reviewed patient Home Medication Reconciliation performed by pharmacy medication reconciliations textile science technician and/or nursing. Patients Allergies have been reviewed. Allergies Allergies Coded Allergies No Known Drug Allergies (Unverified01/14/19) Past Tmemwgb-Nilfta-Wxklhf Hx Past Med/Social Hx: Reviewed and Corrections made Patient Social History Alcohol Use: Denies Use Recreational Drug Use: No Smoking Status: Never a Smoker 2nd Hand Smoke Exposure: No Recent Foreign Travel: No Contact w/other who traveled: No Recent Infectious Disease Expo: No Seasonal Allergies Seasonal Allergies: Yes Past Medical History Surgeries: Appendectomy, Orthopedic Cardiac: High Cholesterol, Hypertension Neurological: Headaches /Migraines Musculoskeletal: Arthritis Endocrine: Diabetes, Insulin dep Psychosocial: Depression Review of Systems Constitutional: see HPI Physical Exam Physical Exam Vital Signs Vital Signs - First Documented 03/22/20 03/22/20 10:39 14:50 Temp 36.8 Pulse 89 Resp 14 B/P (MAP) 191/76 (114) Pulse Ox 99 O2 Delivery Room Air Capillary Refill : Less Than 3 Seconds Height, Weight, BMI Height: 5'0" Weight: 125lbs. oz. 56.534696cj; 25.00 BMI Method:Stated General Appearance: No Apparent Distress, Mild Distress Neck: Full Range of Motion Respiratory: Chest Non Tender, Lungs Clear, Normal Breath Sounds, No Accessory Muscle Use, No Respiratory Distress Cardiovascular: Regular Rate, Rhythm, No Edema, No Murmur, Normal Peripheral Pulses (2+ bilateral radial pulses) Gastrointestinal: Normal Bowel Sounds, Non Tender, Soft Extremity: Normal Capillary Refill, Normal Inspection, Normal Range of Motion Neurologic/Psychiatric: Alert, Oriented x3, No Motor/Sensory Deficits, Normal Mood/Affect Skin: Normal Color, Warm/Dry Results Results/Procedures Labs Laboratory Tests 03/22/20 10:45 03/23/20 02:55 Patient resulted labs reviewed. Short Stay Diagnosis Discharge Diagnosis-Short Stay Admission Diagnosis 1. Viral bronchiolitis 2. Chest pain secondary to number 1 2. Type II diabetes mellitus Final Discharge Diagnosis same as admission diagnosis Conclusion Plan see H&P Clinical Quality Measures DVT/VTE Risk/Contraindication: Risk Factor Score Per Nursin RFS Level Per Nursing on Admit: 1=Low/No VTE PPX Copy Copies To 1: SADAF LOCO MD,AYDEN Mann MD Mar 23, 2020 12:06
--- NOTE | 2020-03-23 12:30 | NUR ---
pt to be d/c home pt up to void, iv d/c at this time. assisted pt in getting dressed.
--- NOTE | 2020-03-23 13:44 | Progress Note - Cardiology ---
Cardiology SOAP Progress Note Subjective: Mild upper midsternal discomfort is persistent, much less than yesterday Shortness of breath with exertion Gen malaise No palp or syncope or focal weakness No n/v/d Objective: I&O/Vital Signs 03/23/20 03/23/20 03/23/20 03/23/20 02:00 03:00 03:38 04:00 Temp 36.4 Pulse 73 82 78 B/P (MAP) 104/59 124/56 144/72 Pulse Ox 97 95 97 O2 Delivery Room Air Room Air Room Air 03/23/20 03/23/20 03/23/20 03/23/20 04:00 05:00 06:00 07:00 Pulse 81 75 76 B/P (MAP) 128/68 126/67 152/77 Pulse Ox 98 98 95 99 O2 Delivery Room Air Room Air Room Air Room Air 03/23/20 03/23/20 03/23/20 03/23/20 07:00 07:45 07:47 08:00 Temp 37.0 Pulse 74 79 B/P (MAP) 135/68 Pulse Ox 99 97 O2 Delivery Room Air Room Air 03/23/20 03/23/20 03/23/20 03/23/20 08:00 09:00 09:52 11:00 Pulse 80 83 81 B/P (MAP) 120/62 144/69 144/73 Pulse Ox 98 97 97 96 O2 Delivery Room Air Room Air Room Air Room Air 03/23/20 12:00 Pulse Ox 98 O2 Delivery Room Air 03/23/20 00:00 Intake Total 850 ml Output Total 250 ml Balance 600 ml Weight (Pounds): 125 Weight (Calculated Kilograms): 56.513649 Constitutional: AAO x 3, well-developed, well-nourished Respiratory: No accessory muscle use; other (good bilateral air entry) Cardiovascular: regular rate-rhythm, S1 and S2, systolic murmur (soft VERONICA at card base) Gastrointestional: No tender; soft; No guarding, No rebound; audible bowel sounds Extremities: No clubbing, No cyanosis, No significant edema Neurologic/Psychiatric: oriented x 3, other (moves all limbs equally) Skin: No rash on exposed areas, No ulcerations on exposed areas Results/Procedures: Labs Laboratory Tests 03/22/20 15:42: Prothrombin Time 12.7, INR Comment 0.9, Activated Partial Thromboplast Time 61H 03/22/20 16:34: Glucometer 121H 03/22/20 20:12: Glucometer 306H 03/23/20 02:55: White Blood Count 7.8, Red Blood Count 3.92, Hemoglobin 11.0L, Hematocrit 34L, Mean Corpuscular Volume 87, Mean Corpuscular Hemoglobin 28, Mean Corpuscular Hemoglobin Concent 32, Red Cell Distribution Width 14.1, Platelet Count 218, Mean Platelet Volume 10.7, Immature Granulocyte % (Auto) 0, Neutrophils (%) (Auto) 51, Lymphocytes (%) (Auto) 37, Monocytes (%) (Auto) 9, Eosinophils (%) (Auto) 3, Basophils (%) (Auto) 1, Neutrophils # (Auto) 4.0, Lymphocytes # (Auto) 2.8, Monocytes # (Auto) 0.7, Eosinophils # (Auto) 0.2, Basophils # (Auto) 0.1, Immature Granulocyte # (Auto) 0.0, Sodium Level 142, Potassium Level 5.4H, Chloride Level 107, Carbon Dioxide Level 21, Anion Gap 14, Blood Urea Nitrogen 18, Creatinine 0.98, Estimat Glomerular Filtration Rate 58, BUN/Creatinine Ratio 18, Glucose Level 65L, Calcium Level 8.5, Phosphorus Level 5.0H, Magnesium Level 2.0, B-Type Natriuretic Peptide 92.1, Procalcitonin 0.05 03/23/20 04:24: Glucometer 131H 03/23/20 05:04: Glucometer 162H 03/23/20 07:50: Urine Color YELLOW, Urine Clarity CLEAR, Urine pH 6.5, Urine Specific Smilax 1.015L, Urine Protein NEGATIVE, Urine Glucose (UA) NEGATIVE, Urine Ketones NEGATIVE, Urine Nitrite NEGATIVE, Urine Bilirubin NEGATIVE, Urine Urobilinogen 0.2, Urine Leukocyte Esterase NEGATIVE, Urine RBC (Auto) NEGATIVE, Urine RBC NONE, Urine WBC NONE, Urine Renal Epithelial Cells RARE, Urine Crystals NONE, Urine Calcium Oxalate Crystals RAREH, Urine Bacteria TRACE, Urine Casts NONE, Urine Mucus NEGATIVE, Urine Culture Indicated NO 03/23/20 10:15: Troponin I < 0.028 03/23/20 11:05: Coronavirus 2019 ([facility]) Negative 10/18/20 11:12: Glucometer 248H Laboratory Tests 03/22/20 10:45 03/23/20 02:55 A/P: Assessment: COVID PUI Chest discomfort of undetermined etiology, no evidence of ACS LBBB DM II H/o hypertension Plan: * I discussed her cardiac w/u with her. No evidence of ACS * Given risk factors and nonspecific symptoms, we have advised a stress test that can be undertaken as an outpt * I discussed her case with Dr Corbin on the phone this am RHODA DIEGO MD FACP FACC CCDS Mar 23, 2020 13:44
--- NOTE | 2020-03-24 05:43 | Physician Query Clarification ---
PQ-Uncertain Diagnosis Admission/Discharge Admission Date: Mar 22, 2020 at 14:48 Discharge Date: Mar 23, 2020 at 13:25 AYDEN Villalta MD The medical record reflects the following clinical scenario: History/Risk Factors: Patient is a 59-year-old female who presents to the emergency room today with a chief complaint of substernal chest pain and pressure ED physician note, 03/22: Unstable angina documented in ER impression. Cardiology progress notes, 03/23: Chest discomfort of undetermined etiology, no evidence of ACS Short stay summary, 03/23: Viral bronchiolitis, Chest pain secondary to Viral bronchitis, Type II diabetes mellitus Clinical Findings: BNP- 92.1 Treatment: Aspirin, Nitroglycerin Question: Is Unstable Angina a clinically valid diagnosis? Unstable Angina was documented in the ED Physician note, 03/22 with no further documentation in the medical record. Please document a response in Progress Note or Discharge Summary. 1. Yes, clinically valid, condition resolved. 2. No, condition ruled out. 3. Other, with explanation of clinical findings. 4. Undetermined, no explanation for clinical findings. PHYSICIAN RESPONSE Diagnosis clinically valid: No, conditon ruled out Please remember a lack of response to the above will prompt a phone page by CDI/Coding staff. In responding to this query, please exercise your independent professional judgment. The purpose of this communication is to more accurately reflect the complexity of your patients condition. The fact that a question is asked does not imply that any particular answer is desired or expected. Thank you for your timely response to this clarification. Requestors name: [ ] Phone # [ ] THIS PHYSICIAN QUERY FORM IS A PERMANENT PART OF THE MEDICAL RECORD PERRYRICARDO Mar 24, 2020 05:43 AYDEN RICHARD MD Mar 25, 2020 15:48
== END 2020-03-23 13:25 | disposition home or self-care (01) | DRG 203 ==
LOC: EDUNIT# 10:27 → ER FS 10:29 → ICU 14:48
PROVIDERS: ADMIT Internal Medicine; ATTEND Internal Medicine
DX: J20.8 Acute bronchitis due to other specified organisms (principal); Z20.828 Contact with and (suspected) exposure to other viral communicable diseases; I44.7 Left bundle-branch block, unspecified; I10 Essential (primary) hypertension; E78.00 Pure hypercholesterolemia, unspecified; G43.909 Migraine, unspecified, not intractable, without status migrainosus; M19.90 Unspecified osteoarthritis, unspecified site; F32.9 Major depressive disorder, single episode, unspecified; E11.319 Type 2 diabetes mellitus with unspecified diabetic retinopathy without macular edema
CPT/HCPCS: 36415; 71045; 80048; 80053; 81000; 82962; 83735; 83874; 83880; 84100; 84145; 84484; 85025; 85610; 85730; 87635; 93005; 93041; 93306; 94640; G0378

== ENCOUNTER → 2021-02-02 | Outpatient (CLI) | payer BC ==
[~2021-02-02] VITALS: Ht 152 cm; Wt 58.1 kg
[~2021-02-02] MED LIST changes: +ACETAMINOPHEN 500 MG TAB (TYLENOL) PO PRN; +CASIRIVIMAB/IMDEVIMAB 1,200 MG in NS (IVPB) 250 ML IV ONE; +EPINEPHrine INJECTION 1 MG/ML AMP IM PRN; +ONDANSETRON 4 MG/2 ML (SDV) Z0FRAN IV PRN; +diphenhydrAMINE 50 MG/ML INJ (BENADRYL) IV PRN
[2021-02-02 12:58] VITALS: BP 167/63
[2021-02-02 14:49] VITALS: BP 202/73
== END ==
LOC: INFUSION 12:52
PROVIDERS: ATTEND Registered Nurse
DX: Z23 Encounter for immunization (principal); U07.1 COVID-19

== ENCOUNTER 2022-04-05 14:02 | Emergency (ER) | payer BC ==
[~2022-04-05] VITALS: Ht 152.4 cm; Wt 54.5 kg
[~2022-04-05 14:02] MED LIST changes: -ACETAMINOPHEN 500 MG TAB (TYLENOL) PO PRN; +AMLO-251 PO; -CASIRIVIMAB/IMDEVIMAB 1,200 MG in NS (IVPB) 250 ML IV ONE; +CEFD300C3 PO; +CETI10TA49 PO; +DULA1.5P2 SC; -EPINEPHrine INJECTION 1 MG/ML AMP IM PRN; +GLIM2TAB4 PO; +IBUP-2473 PO; +INSU100I34 SC; +LISI20TA26 PO; +MELO7.5T46 PO; +MULT-974 PO; -ONDANSETRON 4 MG/2 ML (SDV) Z0FRAN IV PRN; +SERT-414 PO; +SIMV20TA26 PO; -diphenhydrAMINE 50 MG/ML INJ (BENADRYL) IV PRN
[2022-04-05 14:27] LABS: BASOPHILS # (AUTO) 0.1 10^3/uL (0.0-0.1); BASOPHILS % (AUTO) 1 % (0-10); EOSINOPHILS # (AUTO) 0.2 10^3/uL (0.0-0.3); EOSINOPHILS % (AUTO) 2 % (0-10); HEMATOCRIT 36 % (35-52); HEMOGLOBIN 12.2 g/dL (11.5-16.0); LYMPHOCYTES # (AUTO) 1.6 10^3/uL (1.0-4.0); LYMPHOCYTES % (AUTO) 23 % (12-44); MEAN CORPUSCULAR HEMOGLOBIN 28 pg (25-34); MEAN CORPUSCULAR HGB CONC 34 g/dL (32-36); MEAN CORPUSCULAR VOLUME 82 fL (80-99); MEAN PLATELET VOLUME 11.1 fL (9.0-12.2); MONOCYTES # (AUTO) 0.5 10^3/uL (0.0-1.0); MONOCYTES % (AUTO) 7 % (0-12); NEUTROPHILS # (AUTO) 4.6 10^3/uL (1.8-7.8); NEUTROPHILS % (AUTO) 66 % (42-75); PLATELET COUNT 230 10^3/uL (130-400); WHITE BLOOD COUNT 6.9 10^3/uL (4.3-11.0)
[2022-04-05 14:29] LABS: BILIRUBIN,URINE NEGATIVE (NEGATIVE); CLARITY,URINE CLEAR; COLOR,URINE YELLOW; GLUCOSE, URINE (UA) 3+ (NEGATIVE); KETONES,URINE NEGATIVE (NEGATIVE); LEUKOCYTE ESTERASE ,URINE NEGATIVE (NEGATIVE); NITRITE,URINE NEGATIVE (NEGATIVE); PROTEIN,URINE NEGATIVE (NEGATIVE)
[2022-04-05 14:35] LABS: BACTERIA,URINE NEGATIVE /HPF; SQUAMOUS EPITHELIAL CELL,UR 0-2 /HPF; WBC,URINE RARE /HPF
[2022-04-05 14:44] LABS: AMPHETAMINE SCREEN, URINE NEGATIVE (NEGATIVE); BARBITURATE SCREEN URINE NEGATIVE (NEGATIVE); BENZODIAZEPINES SCREEN URINE NEGATIVE (NEGATIVE); CANNABINOID SCREEN, URINE NEGATIVE (NEGATIVE); COCAINE SCREEN URINE NEGATIVE (NEGATIVE); METHADONE STAT NEGATIVE (NEGATIVE); OPIATE SCREEN URINE NEGATIVE (NEGATIVE); OXYCODONE STAT NEGATIVE (NEGATIVE); PROPOXYPHENE STAT NEGATIVE (NEGATIVE); TRICYCLIC ANTIDEPRESSANTS SCRE NEGATIVE (NEGATIVE)
[2022-04-05] MEDS ORDERED: PANTOPRAZOLE 40 MG (PROTONIX) VIAL IV STA (14:46)
[2022-04-05] MEDS ORDERED: PEN G BENZ (BICILLIN LA) 1.2 M UN/2 ML SYR IM STA (14:46)
[2022-04-05] MEDS ORDERED: NS IV 1000 ML 1,000 ML IV STA (14:46)
[2022-04-05] MEDS ORDERED: ONDANSETRON 4 MG/2 ML (SDV) Z0FRAN IVP STA (14:46)
[2022-04-05] MEDS ORDERED: KETOROLAC 30 MG/ML VIAL IVP STA (14:48)
--- NOTE | 2022-04-05 14:52 | ED General ---
General Chief Complaint: Abdominal/GI Problems Stated Complaint: EPIGASTRIC PAIN Nursing Triage Note: PT AMBULATE TO ROOM FS06 FROM [facility] WITH C/O EPIGASTRIC PAIN AND MID BACK PAIN. PT REPORTS HX OF PANCREATITIS. [facility] REPORTS PT TESTED POS FOR STREP TODAY. [facility] REPORTS THEY DID NOT TREAT THE STREP STATING THE ED CAN ADDRESS THIS CONCERN. Source of Information: Patient History of Present Illness Date Seen by Provider: Apr 05, 2022 Time Seen by Provider: 14:10 Initial Comments 62-year-old female presenting with multiple complaints to the emergency department. She states that she has not been feeling well without new she had the flu or COVID. She has had some congestion and sore throat as well as been feeling lightheaded. She also has had about 10 days of epigastric pain radiating to her back. She states that she has had pancreatitis previously and thought this might be a flareup of that again. She had gone to urgent care and they reportedly tested her for COVID and influenza and these were both negative. However her strep throat swab was positive. They did not attempt to treat this and told her she should come to the emergency department for further testing. Timing/Duration: Other (about 10 days of epigastric pain to back, general malaise, URI symptoms with cough and congestion and sore throat) Severity: Moderate Modifying Factors: worse with Eating Associated Systoms: No Chest Pain; Cough; No Diaphoresis, No Fever/Chills, No Headaches; Loss of Appetite, Malaise, Nausea/Vomiting (nausea but no emesis); No Seizure, No Shortness of Air, No Syncope; Weakness (generalized) Allergies and Home Medications Allergies Coded Allergies: No Known Drug Allergies (Unverified , 12/21/21) Patient Home Medication List Home Medication List Reviewed: Yes Amlodipine Besylate (Amlodipine Besylate) 10 Mg Tablet, 10 MG PO DAILY Prescribed by: BEAN RAY on 12/25/21 1140 Cefdinir (Cefdinir) 300 Mg Capsule, 300 MG PO BID Prescribed by: BEAN RAY on 12/25/21 1140 Cetirizine HCl (Zyrtec) 10 Mg Tablet, 10 MG PO DAILY PRN for ALLERGIES, (Reported) Entered as Reported by: AMY ROMERO on 12/21/21 1513 Dulaglutide (Trulicity) 1.5 Mg/0.5 Ml Pen.injctr, 1.5 MG SC TIARRA, (Reported) Entered as Reported by: AMY ROMERO on 12/21/21 1507 Glimepiride (Glimepiride) 2 Mg Tablet, 2 MG PO BID, (Reported) Entered as Reported by: AMY ROMERO on 12/21/21 1505 Ibuprofen (Ibuprofen) 200 Mg Tablet, 400 MG PO Q6H PRN for PAIN-MILD (1-4), (Reported) Entered as Reported by: AMY ROMERO on 12/21/21 1512 Insulin Glargine,Hum.rec.anlog (Basaglar Kwikpen U-100) 100 Unit/Ml (3 Ml) Insuln.pen, 20 UNITS SC HS, (Reported) Entered as Reported by: AMY ROMERO on 12/21/21 1507 Lisinopril (Lisinopril) 20 Mg Tablet, 20 MG PO BID, (Reported) Entered as Reported by: AMY ROMERO on 12/21/21 1505 Multivitamin (Multi-Vitamin Daily) 1 Each Tablet, 1 EACH PO DAILY, (Reported) Entered as Reported by: AMY ROMERO on 12/21/21 1513 Ondansetron (Ondansetron Odt) 4 Mg Tab.rapdis, 4 MG PO Q6H PRN for NAUSEA/VOMITING-1ST LINE Prescribed by: BEAN RAY on 12/25/21 1140 Sertraline HCl (Sertraline HCl) 100 Mg Tablet, 100 MG PO HS, (Reported) Entered as Reported by: AMY ROMERO on 12/21/21 1510 Simvastatin (Simvastatin) 20 Mg Tablet, 20 MG PO DAILY, (Reported) Entered as Reported by: AMY ROMERO on 12/21/21 1510 Sucralfate (Carafate) 1 Gram Tablet, 1 GM PO QIDACHS Prescribed by: ELSY HAY on 04/05/22 1550 Review of Systems Review of Systems Constitutional: No chills, No diaphoresis; dizziness; No fever; malaise, weakness EENTM: nose congestion, throat pain; No ear discharge, No ear pain, No vision loss Respiratory: No cough, No hemoptysis, No short of breath Cardiovascular: No chest pain Gastrointestinal: see HPI Genitourinary: No dysuria, No frequency, No hematuria Musculoskeletal: no symptoms reported Skin: no symptoms reported Psychiatric/Neurological: Anxiety Past Celkxeu-Vylswn-Jrnhai Hx Patient Social History Tobacco Use?: No Smoking Status: Never a Smoker Smokeless Tobacco Frequency: Never a User Use of E-Cig and/or Vaping dev: No Use of E-Cig and/or Vaping Wei: Never a User Substance use?: No Alcohol Use?: No Pt feels they are or have been: No Immunizations Up To Date First/Initial COVID19 Vaccinat: Yes Second COVID19 Vaccination Can: Yes Seasonal Allergies Seasonal Allergies: Yes Past Medical History Surgery/Hospitalization HX: Appendectomy; DM insulin dependent; HTN; High Cholesterol; Depression; Arthritis; Neuropathy. Surgeries: Yes (rotator cuff; laser eye surgery) Appendectomy, Orthopedic Respiratory: No High Cholesterol, Hypertension Neurological: Yes Headaches /Migraines Genitourinary: No Gastrointestinal: No Musculoskeletal: Yes Arthritis Endocrine: Yes Diabetes, Insulin dep HEENT: No Cancer: No Psychosocial: Yes Depression Integumentary: No Physical Exam Vital Signs Vital Signs - First Documented 04/05/22 14:09 Temp 36.2 Pulse 85 Resp 14 B/P (MAP) 178/63 (101) O2 Delivery Room Air Capillary Refill : Less Than 3 Seconds Height, Weight, BMI Height: 5'0" Weight: 125lbs. oz. [id number]; 23.00 BMI Method:Stated General Appearance: No Apparent Distress, Chronically ill HEENT: PERRL/EOMI, Pharynx Normal, Moist Mucous Membranes Neck: Full Range of Motion, Non Tender, Supple Respiratory: Chest Non Tender, Lungs Clear, Normal Breath Sounds, No Accessory Muscle Use, No Respiratory Distress Cardiovascular: Regular Rate, Rhythm, Normal Peripheral Pulses Gastrointestinal: Normal Bowel Sounds, No Pulsatile Mass, Soft; No Distended, No Guarding, No Rebound; Tenderness Rectal: Deferred Extremity: Normal Capillary Refill, Normal Inspection, No Pedal Edema Neurologic/Psychiatric: Alert, Oriented x3 Skin: Normal Color, Warm/Dry Progress/Results/Core Measures Suspected Sepsis SIRS Temperature: Pulse: 85 Respiratory Rate: 14 Laboratory Tests 04/05/22 14:16: White Blood Count 6.9 Blood Pressure 178 /63 Mean: 101 Laboratory Tests 04/05/22 14:16: Creatinine 0.94, Platelet Count 230, Total Bilirubin 0.2 Results/Orders Lab Results Laboratory Tests Test 04/05/22 14:10 04/05/22 14:16 Range/Units Urine Color YELLOW Urine Clarity CLEAR Urine pH 6.0 5-9 Urine Specific [place] 1.010 L 1.016-1.022 Urine Protein NEGATIVE NEGATIVE Urine Glucose (UA) 3+ H NEGATIVE Urine Ketones NEGATIVE NEGATIVE Urine Nitrite NEGATIVE NEGATIVE Urine Bilirubin NEGATIVE NEGATIVE Urine Urobilinogen 0.2 < = 1.0 MG/DL Urine Leukocyte Esterase NEGATIVE NEGATIVE Urine RBC (Auto) NEGATIVE NEGATIVE Urine RBC NONE /HPF Urine WBC RARE /HPF Urine Squamous Epithelial Cells 0-2 /HPF Urine Crystals NONE /LPF Urine Bacteria NEGATIVE /HPF Urine Casts NONE /LPF Urine Mucus NEGATIVE /LPF Urine Culture Indicated NO Urine Opiates Screen NEGATIVE NEGATIVE Urine Oxycodone Screen NEGATIVE NEGATIVE Urine Methadone Screen NEGATIVE NEGATIVE Urine Propoxyphene Screen NEGATIVE NEGATIVE Urine Barbiturates Screen NEGATIVE NEGATIVE Ur Tricyclic Antidepressants Screen NEGATIVE NEGATIVE Urine Phencyclidine Screen NEGATIVE NEGATIVE Urine Amphetamines Screen NEGATIVE NEGATIVE Urine Methamphetamines Screen NEGATIVE NEGATIVE Urine Benzodiazepines Screen NEGATIVE NEGATIVE Urine Cocaine Screen NEGATIVE NEGATIVE Urine Cannabinoids Screen NEGATIVE NEGATIVE White Blood Count 6.9 4.3-11.0 10^3/uL Red Blood Count 4.41 3.80-5.11 10^6/uL Hemoglobin 12.2 11.5-16.0 g/dL Hematocrit 36 35-52 % Mean Corpuscular Volume 82 80-99 fL Mean Corpuscular Hemoglobin 28 25-34 pg Mean Corpuscular Hemoglobin Concent 34 32-36 g/dL Red Cell Distribution Width 13.6 10.0-14.5 % Platelet Count 230 130-400 10^3/uL Mean Platelet Volume 11.1 9.0-12.2 fL Immature Granulocyte % (Auto) 1 % Neutrophils (%) (Auto) 66 42-75 % Lymphocytes (%) (Auto) 23 12-44 % Monocytes (%) (Auto) 7 0-12 % Eosinophils (%) (Auto) 2 0-10 % Basophils (%) (Auto) 1 0-10 % Neutrophils # (Auto) 4.6 1.8-7.8 10^3/uL Lymphocytes # (Auto) 1.6 1.0-4.0 10^3/uL Monocytes # (Auto) 0.5 0.0-1.0 10^3/uL Eosinophils # (Auto) 0.2 0.0-0.3 10^3/uL Basophils # (Auto) 0.1 0.0-0.1 10^3/uL Immature Granulocyte # (Auto) 0.0 0.0-0.1 10^3/uL Sodium Level 135 135-145 MMOL/L Potassium Level 4.2 3.6-5.0 MMOL/L Chloride Level 96 L 98-107 MMOL/L Carbon Dioxide Level 25 21-32 MMOL/L Anion Gap 14 5-14 MMOL/L Blood Urea Nitrogen 23 H 7-18 MG/DL Creatinine 0.94 0.60-1.30 MG/DL Estimat Glomerular Filtration Rate 68 BUN/Creatinine Ratio 24 Glucose Level 351 H 70-105 MG/DL Calcium Level 9.5 8.5-10.1 MG/DL Corrected Calcium 9.3 8.5-10.1 MG/DL Total Bilirubin 0.2 0.1-1.0 MG/DL Aspartate Amino Transf (AST/SGOT) 25 5-34 U/L Alanine Aminotransferase (ALT/SGPT) 30 0-55 U/L Alkaline Phosphatase 133 40-136 U/L Troponin I < 0.30 <0.30 NG/ML Total Protein 7.6 6.4-8.2 GM/DL Albumin 4.3 3.2-4.5 GM/DL Lipase 48 8-78 U/L Serum Alcohol < 10 <10 MG/DL My Orders Orders - ELSY HAY MD Ua Culture If Indicated (04/05/22 14:14) Drug Screen Stat (Urine) (04/05/22 14:14) Comprehensive Metabolic Panel (04/05/22 14:14) Lipase (04/05/22 14:14) Ed Iv/Invasive Line Start (04/05/22 14:14) Cbc With Automated Diff (04/05/22 14:14) Ekg Tracing (04/05/22 14:14) Troponin I Fs (04/05/22 14:14) Alcohol (04/05/22 14:14) Ns Iv 1000 Ml (Sodium Chloride 0.9%) (04/05/22 14:46) Penicillin G Benzathine Inject (Bicillin (04/05/22 14:46) Pantoprazole Injection (Protonix Injecti (04/05/22 14:46) Ondansetron Injection (Zofran Injectio (04/05/22 14:46) Ct Abdomen/Pelvis W (04/05/22 14:48) Ketorolac Injection (Toradol Injection) (04/05/22 14:48) Iohexol Injection (Omnipaque 350 Mg/Ml 1 (04/05/22 15:00) Received Contrast (Hold Metformin- Contr (04/05/22 15:00) Ns (Ivpb) (Sodium Chloride 0.9% Ivpb Bag (04/05/22 15:00) Medications Given in ED Current Medications Medications Dose Ordered Sig/Lary Route Start Time Stop Time Status Last Admin Dose Admin Iohexol 100 ml ONCE ONCE IV 04/05/22 15:00 04/05/22 15:01 DC 04/05/22 15:08 75 ML Sodium Chloride 100 ml ONCE ONCE IV 04/05/22 15:00 04/05/22 15:01 DC 04/05/22 15:08 100 ML Vital Signs/I&O 04/05/22 14:09 Temp 36.2 Pulse 85 Resp 14 B/P (MAP) 178/63 (101) O2 Delivery Room Air Capillary Refill : Less Than 3 Seconds Blood Pressure Mean: 101 Progress Note #1: Progress Note Obtain labs with UA, UDS. CT scan of abdomen/pelvis to check for pancreatitis, diverticulitis, colitis, gastritis, PUD, bowel obstruction Give normal saline 1 L IV fluid bolus for hydration, Toradol 30 mg IV for pain, Protonix 40 mg IV for gastritis and nausea, Zofran 4 mg IV for nausea and vomiting. Progress Note #2: Progress Note Electrocardiogram was interpreted and reviewed by myself. This showed stable left bundle branch block with a left axis deviation similar to December 22, 2021. Initial labs were also stable with no acute significant normality on CBC or urinalysis other than 3+ glucose on UA. She is not showing signs of a high white count for infection, anemia, electrolyte imbalance, UTI. Chemistry panel has negative troponin, electrolytes are stable and no acute significant abnormality on lipase, LFTs and renal function. Treated her strep throat with Bicillin LA 1.2 million units IM x 1. Awaiting CT scan of abdomen/pelvis to look for acute abdominal pathology for her symptoms. This may be a combination of diabetic gastroparesis and her strep throat. She could also have gastritis or PUD. Progress Note #3: Time: 15:[address] scan of the abdomen pelvis does not show acute bowel obstruction, colitis, diverticulitis, constipation, free air. With her other tests stable and not showing signs of pancreatitis or acute significant abnormality to account for her not feeling well and having epigastric pain going to her back again this may be related back to her strep throat infection. She was treated with Bicillin LA 1,200,000 units IM here today since urgent care did not try to treat her after diagnosing her with strep throat. She states that she has an appointment on with Lizbeth Calvo about her diabetes. She may need to be on medication for gastroparesis or at least have testing done to look and see if she has diabetic gastroparesis. ECG Initial ECG Impression Date: Apr 05, 2022 Initial ECG Impression Time: 14:25 Initial ECG Rate: 79 Initial ECG Rhythm: Normal Sinus Initial ECG Comparisson: Unchanged (22 December 2021) Comment Electrocardiogram was reviewed and interpreted by myself. She shows a normal sinus rhythm with a heart rate of 79 bpm. TN interval 156 ms. There is a left axis deviation and chronic left bundle branch block. Her QT interval is 430 ms with a QTc interval 465 ms. She has no acute ST elevation. Overall appears similar to tracing from 22 December 2021. Diagnostic Imaging Diagonstic Imaging: CT Plain Films/CT/US/NM/MRI: abdomen, pelvis Comments NAME: AGUILAR [facility] REC#: [id number] PT STATUS: REG ER : 1960 PHYSICIAN: ELSY HAY MD ADMIT DATE: 04/05/22/ER FS Draft Date of Exam:04/05/22 CT ABDOMEN/PELVIS W EXAMINATION: CT abdomen and pelvis with intravenous contrast. TECHNIQUE: Multiple contiguous axial images were obtained through the abdomen and pelvis after the uneventful administration of intravenous contrast. All CT scans use one or more of the following dose optimizing techniques: Automated exposure control, MA and/or KvP adjustment based on patient size and exam type or iterative reconstruction. HISTORY: Epigastric pain radiating to the back. COMPARISON: 12/21/2021. FINDINGS: The heart is unremarkable. The included lung bases are clear. Bilateral simple cortical cysts are seen in the kidneys. Nonobstructing calculi are seen bilaterally. No solid renal mass or hydronephrosis. No perinephric fat stranding. The urinary bladder is nondistended. The liver, spleen, pancreas, and adrenal glands have a normal appearance. The gallbladder is unremarkable. The portal vein is patent. There is no pathologically enlarged mesenteric or retroperitoneal adenopathy. The bowel loops are nondilated. There is no free fluid or free air. No acute osseous abnormalities. There is scattered calcified aortic and iliac atherosclerotic plaque without aneurysm. Ureters and bladder are grossly normal. Multiple calcified uterine fibroids are seen. There is no free air, loculated collection, or adenopathy in the pelvis. IMPRESSION: 1. No acute abnormalities in the abdomen and pelvis. No bowel obstruction, free fluid, or free air. Dictated on workstation # [id number] Dict: 04/05/22 1532 Trans: 04/05/22 153 [id number] Interpreted by: JACKELIN BARFIELD DO Electronically signed by: Reviewed: Reviewed by Me Departure Impression Primary Impression: Strep pharyngitis Additional Impression: Epigastric pain Disposition: HOME, SELF-CARE Condition: Stable Departure-Patient Inst. Decision time for Depature: 15:45 Referrals: SADAF SEE MD (PCP) Primary Care Physician Patient Instructions: Strep Throat ED, Gastritis ED, Ulcer and Gastritis Diet Add. Discharge Instructions: Follow a liquid or bland diet and stay well hydrated. Try medicine for gastritis and stomach irritation. Check with clinic on when you are seen for your Diabetes as you may need testing for gastroparesis (slow stomach emptying time due to Diabetes) or peptic ulcer disease. You were given an intramuscular injection of antibiotics to treat for strep throat. Make sure to change out to a new toothbrush so you do not re-infect yourself with strep throat. All discharge instructions reviewed with patient and/or family. Voiced understanding. Scripts Sucralfate (Carafate) 1 Gram Tablet 1 GM PO QIDACHS for epigastric pain for 10 Days, #40 TAB 0 Refills Prov: ELSY HAY MD 04/05/22 ELSY HAY MD Apr 05, 2022 14:52
[2022-04-05 14:55] LABS: CHLORIDE 96 MMOL/L (98-107); POTASSIUM 4.2 MMOL/L (3.6-5.0); SODIUM 135 MMOL/L (135-145)
[2022-04-05 14:56] LABS: ALANINE AMINOTRANSFERASE 30 U/L (0-55); ALBUMIN 4.3 GM/DL (3.2-4.5); ALKALINE PHOSPHATASE 133 U/L (40-136); BILIRUBIN,TOTAL 0.2 MG/DL (0.1-1.0); BUN/CREATININE RATIO 24; CALCIUM 9.5 MG/DL (8.5-10.1); CARBON DIOXIDE 25 MMOL/L (21-32); CREATININE SERUM 0.94 MG/DL (0.60-1.30); GFR ESTIMATED 68; GLUCOSE 351 MG/DL (70-105); LIPASE 48 U/L (8-78); TOTAL PROTEIN 7.6 GM/DL (6.4-8.2)
[2022-04-05] MEDS ORDERED: IOHEXOL 350 MG/ML 100 ML (OMNIPAQUE 350) VIAL IV ONE (15:00)
[2022-04-05] MEDS ORDERED: NS 100 ML (IVPB) BAG IV ONE (15:00)
[2022-04-05] MEDS ORDERED: HOLD METFORMIN - RECEIVED CONTRAST 20 ML VIAL IV SCH (15:00)
--- NOTE | 2022-04-05 15:39 | Diagnostic Imaging Report ---
EXAMINATION: CT abdomen and pelvis with intravenous contrast. TECHNIQUE: Multiple contiguous axial images were obtained through the abdomen and pelvis after the uneventful administration of intravenous contrast. All CT scans use one or more of the following dose optimizing techniques: Automated exposure control, MA and/or KvP adjustment based on patient size and exam type or iterative reconstruction. HISTORY: Epigastric pain radiating to the back. COMPARISON: 12/21/2021. FINDINGS: The heart is unremarkable. The included lung bases are clear. Bilateral simple cortical cysts are seen in the kidneys. Nonobstructing calculi are seen bilaterally. No solid renal mass or hydronephrosis. No perinephric fat stranding. The urinary bladder is nondistended. The liver, spleen, pancreas, and adrenal glands have a normal appearance. The gallbladder is unremarkable. The portal vein is patent. There is no pathologically enlarged mesenteric or retroperitoneal adenopathy. The bowel loops are nondilated. There is no free fluid or free air. No acute osseous abnormalities. There is scattered calcified aortic and iliac atherosclerotic plaque without aneurysm. Ureters and bladder are grossly normal. Multiple calcified uterine fibroids are seen. There is no free air, loculated collection, or adenopathy in the pelvis. IMPRESSION: 1. No acute abnormalities in the abdomen and pelvis. No bowel obstruction, free fluid, or free air. Dictated by: Dictated on workstation # [id number]
[2022-04-05] MEDS ORDERED: SUCR1TAB36 PO (15:50)
[2022-04-05 16:17] VITALS: BP 154/76
== END 2022-04-05 16:20 | disposition home or self-care (01) ==
LOC: EDUNIT# 14:02 → ER FS 14:04
DX: J02.0 Streptococcal pharyngitis (principal); R10.13 Epigastric pain; I44.7 Left bundle-branch block, unspecified; E11.9 Type 2 diabetes mellitus without complications; Z79.4 Long term (current) use of insulin
CPT/HCPCS: 36415; 74177; 80053; 80306; 81000; 83690; 84484; 85025; 93005; 99284; G0480; 80320; Q9967

== ENCOUNTER 2022-07-12 13:00 | Emergency (ER) | payer BC ==
[~2022-07-12] VITALS: Ht 152 cm; Wt 54.0 kg
[~2022-07-12 13:00] MED LIST changes: +SUCR1TAB36 PO
[2022-07-12] MEDS ORDERED: ONDANSETRON 4 MG/2 ML (SDV) Z0FRAN IVP STA (13:20)
[2022-07-12] MEDS ORDERED: KETOROLAC 15 MG/ML VIAL IVP STA (13:20)
[2022-07-12] MEDS ORDERED: PANTOPRAZOLE 40 MG (PROTONIX) VIAL IV STA (13:20)
[2022-07-12] MEDS ORDERED: NS IV 1000 ML 1,000 ML IV STA (13:20)
[2022-07-12 13:28] LABS: BASOPHILS % (AUTO) 1 % (0-10); EOSINOPHILS # (AUTO) 0.2 10^3/uL (0.0-0.3); EOSINOPHILS % (AUTO) 4 % (0-10); HEMATOCRIT 37 % (35-52); HEMOGLOBIN 12.2 g/dL (11.5-16.0); LYMPHOCYTES # (AUTO) 1.6 10^3/uL (1.0-4.0); LYMPHOCYTES % (AUTO) 36 % (12-44); MEAN CORPUSCULAR HEMOGLOBIN 27 pg (25-34); MEAN CORPUSCULAR HGB CONC 33 g/dL (32-36); MEAN CORPUSCULAR VOLUME 82 fL (80-99); MEAN PLATELET VOLUME 11.3 fL (9.0-12.2); MONOCYTES # (AUTO) 0.3 10^3/uL (0.0-1.0); MONOCYTES % (AUTO) 8 % (0-12); NEUTROPHILS # (AUTO) 2.2 10^3/uL (1.8-7.8); NEUTROPHILS % (AUTO) 51 % (42-75); PLATELET COUNT 182 10^3/uL (130-400); WHITE BLOOD COUNT 4.3 10^3/uL (4.3-11.0)
--- NOTE | 2022-07-12 13:28 | ED General ---
General Chief Complaint: General Problems/Pain Stated Complaint: FALLS; DIZZINESS; HOBSON; NAUSEA Source of Information: Patient History of Present Illness Date Seen by Provider: Jul 12, 2022 Time Seen by Provider: 13:04 Initial Comments 62-year-old female presenting with multiple complaints. She states that she started feeling bad on Tuesday and having some dizziness. On Tuesday she had gone to a baby shower and felt like she drank too much of the fruit punch and has been having epigastric abdominal pain with nausea and increased dizziness. She denies any pain or burning with urination. She has not had fever, chills, increased cough, chest pain. She has been having intermittent neck pain for the last few weeks. She has a frontal headache since Tuesday. Her nausea and vomiting started on Tuesday and she also started having some diarrhea with loose watery stools. She denies having any blood in her stool or urine. She has not been able to eat or drink normally due to nausea, vomiting, diarrhea, epigastric abdominal pain. She did eat chili with crackers for lunch today so that she could take her medications. She got the chili from [employer] and states she did not want to let it go to waste. She did not feel like her epigastric pain was any worse after eating or drinking. She fell in the bathroom yesterday and his here right shoulder but no head injury or loss of consciousness. She does have a history of pancreatitis with epigastric abdominal pain but feels this pain is different from that. The pain stays in epigastric area and does not radiate or move into other areas such as chest or back. Pain is 7 out of 10 and sharp in nature currently and denies burning sensation or heartburn type pain. Timing/Duration: 4-5 Days Severity: Moderate Modifying Factors: improves with Other (She denies having increased pain or symptoms with eating or drinking but feels the dizziness is worse with standing and since she is not eating and drinking normally) Associated Systoms: No Chest Pain; Cough (mild chronic and not worse than usual); No Diaphoresis, No Fever/Chills; Headaches (frontal), Loss of Appetite, Malaise, Nausea/Vomiting; No Rash, No Seizure, No Shortness of Air, No Syncope; Weakness (generalized) Allergies and Home Medications Allergies Coded Allergies: No Known Drug Allergies (Unverified , 12/21/21) Patient Home Medication List Home Medication List Reviewed: Yes Amlodipine Besylate (Amlodipine Besylate) 10 Mg Tablet, 10 MG PO DAILY Prescribed by: BEAN RAY on 12/25/21 1140 Cefdinir (Cefdinir) 300 Mg Capsule, 300 MG PO BID Prescribed by: BEAN RAY on 12/25/21 1140 Cetirizine HCl (Zyrtec) 10 Mg Tablet, 10 MG PO DAILY PRN for ALLERGIES, (Reported) Entered as Reported by: AMY ROMERO on 12/21/21 1513 Dulaglutide (Trulicity) 1.5 Mg/0.5 Ml Pen.injctr, 1.5 MG SC WEEEKLY, (Reported) Entered as Reported by: AYM ROMERO on 12/21/21 1507 Glimepiride (Glimepiride) 2 Mg Tablet, 2 MG PO BID, (Reported) Entered as Reported by: AMY ROMERO on 12/21/21 1505 Ibuprofen (Ibuprofen) 200 Mg Tablet, 400 MG PO Q6H PRN for PAIN-MILD (1-4), (Reported) Entered as Reported by: AMY ROMERO on 12/21/21 1512 Insulin Glargine,Hum.rec.anlog (Basaglar Kwikpen U-100) 100 Unit/Ml (3 Ml) Insuln.pen, 20 UNITS SC HS, (Reported) Entered as Reported by: AMY ROMERO on 12/21/21 1507 Lisinopril (Lisinopril) 20 Mg Tablet, 20 MG PO BID, (Reported) Entered as Reported by: AMY ROMERO on 12/21/21 1505 Multivitamin (Multi-Vitamin Daily) 1 Each Tablet, 1 EACH PO DAILY, (Reported) Entered as Reported by: AMY ROMERO on 12/21/21 1513 Ondansetron (Ondansetron Odt) 4 Mg Tab.rapdis, 4 MG PO Q6H PRN for NAUSEA/VOMITING-1ST LINE Prescribed by: BEAN RAY on 12/25/21 1140 Sertraline HCl (Sertraline HCl) 100 Mg Tablet, 100 MG PO HS, (Reported) Entered as Reported by: AMY ROMERO on 12/21/21 1510 Simvastatin (Simvastatin) 20 Mg Tablet, 20 MG PO DAILY, (Reported) Entered as Reported by: AMY ROMERO on 12/21/21 1510 Sucralfate (Carafate) 1 Gram Tablet, 1 GM PO QIDACHS Prescribed by: ELSY HAY on 04/05/22 1550 Review of Systems Review of Systems Constitutional: No chills, No diaphoresis; dizziness; No fever; malaise EENTM: blurred vision (intermittent), nose congestion (chronic and no worse than usual); No epistaxis, No throat pain Respiratory: see HPI Cardiovascular: No chest pain Gastrointestinal: see HPI Genitourinary: decreased output Musculoskeletal: see HPI, neck pain (intermittent neck pain for last few weeks) Skin: No rash Psychiatric/Neurological: See HPI Past [id number]-[id number]-[id number] Hx Patient Social History Tobacco Use?: No Use of E-Cig and/or Vaping dev: No Substance use?: No Alcohol Use?: No Pt feels they are or have been: Unable to obtain Immunizations Up To Date First/Initial COVID19 Vaccinat: Yes Second COVID19 Vaccination Can: Yes Third COVID19 Vaccination Date: Yes Seasonal Allergies Seasonal Allergies: Yes Past Medical History Surgery/Hospitalization HX: Appendectomy; DM insulin dependent; HTN; High Cholesterol; Depression; Arthritis; Neuropathy. Surgeries: Yes (rotator cuff; laser eye surgery) Appendectomy, Orthopedic Respiratory: No High Cholesterol, Hypertension Neurological: Yes Headaches /Migraines Genitourinary: No Gastrointestinal: No Musculoskeletal: Yes Arthritis Endocrine: Yes Diabetes, Insulin dep HEENT: No Cancer: No Psychosocial: Yes Depression Integumentary: No Physical Exam Vital Signs Vital Signs - First Documented 07/12/22 13:05 Temp 36.9 Pulse 83 Resp 16 B/P (MAP) 140/68 (92) Pulse Ox 98 O2 Delivery Room Air Capillary Refill : Height, Weight, BMI Height: 5'0" Weight: 125lbs. oz. 56.050882hq; 23.00 BMI Method:Stated General Appearance: No Apparent Distress, Chronically ill HEENT: PERRL/EOMI, Pharynx Normal; No Moist Mucous Membranes (slightly dry mucus membranes), No Photophobia; Other (Negative cabrales sign, negative raccoon sign, no CSF otorrhea, no CSF rhinorrhea) Neck: Full Range of Motion, Supple, Tender Lateral (bilateral perispinal muscle tenderness) Respiratory: Chest Non Tender, Lungs Clear, Normal Breath Sounds, No Accessory Muscle Use, No Respiratory Distress Cardiovascular: Regular Rate, Rhythm, Normal Peripheral Pulses Gastrointestinal: Normal Bowel Sounds, No Pulsatile Mass, Soft; No Distended, No Guarding, No Hepatomegaly; Tenderness (tender to palpation epigastric area without rebound or guarding) Rectal: Deferred Back: No CVA Tenderness Extremity: Normal Capillary Refill, Normal Inspection, No Pedal Edema Neurologic/Psychiatric: Alert, Oriented x3, topographic computator II-XII Norm as Tested Skin: Normal Color, Warm/Dry Progress/Results/Core Measures Suspected Sepsis SIRS Temperature: Pulse: Respiratory Rate: Laboratory Tests 07/12/22 13:08: White Blood Count 4.3 Blood Pressure / Mean: Laboratory Tests 07/12/22 13:08: Creatinine 1.13, Platelet Count 182, Total Bilirubin 0.2 Results/Orders Lab Results Laboratory Tests Test 07/12/22 13:08 07/12/22 13:10 Range/Units White Blood Count 4.3 4.3-11.0 10^3/uL Red Blood Count 4.46 3.80-5.11 10^6/uL Hemoglobin 12.2 11.5-16.0 g/dL Hematocrit 37 35-52 % Mean Corpuscular Volume 82 80-99 fL Mean Corpuscular Hemoglobin 27 25-34 pg Mean Corpuscular Hemoglobin Concent 33 32-36 g/dL Red Cell Distribution Width 14.3 10.0-14.5 % Platelet Count 182 130-400 10^3/uL Mean Platelet Volume 11.3 9.0-12.2 fL Immature Granulocyte % (Auto) 1 % Neutrophils (%) (Auto) 51 42-75 % Lymphocytes (%) (Auto) 36 12-44 % Monocytes (%) (Auto) 8 0-12 % Eosinophils (%) (Auto) 4 0-10 % Basophils (%) (Auto) 1 0-10 % Neutrophils # (Auto) 2.2 1.8-7.8 10^3/uL Lymphocytes # (Auto) 1.6 1.0-4.0 10^3/uL Monocytes # (Auto) 0.3 0.0-1.0 10^3/uL Eosinophils # (Auto) 0.2 0.0-0.3 10^3/uL Basophils # (Auto) 0.0 0.0-0.1 10^3/uL Immature Granulocyte # (Auto) 0.0 0.0-0.1 10^3/uL Urine Color YELLOW Urine Clarity CLEAR Urine pH 5.5 5-9 Urine Specific [place] 1.025 H 1.016-1.022 Urine Protein TRACE H NEGATIVE Urine Glucose (UA) 3+ H NEGATIVE Urine Ketones TRACE H NEGATIVE Urine Nitrite NEGATIVE NEGATIVE Urine Bilirubin NEGATIVE NEGATIVE Urine Urobilinogen 0.2 < = 1.0 MG/DL Urine Leukocyte Esterase NEGATIVE NEGATIVE Urine RBC (Auto) NEGATIVE NEGATIVE Urine RBC NONE /HPF Urine WBC 0-2 /HPF Urine Squamous Epithelial Cells RARE /HPF Urine Crystals NONE /LPF Urine Bacteria MODERATE H /HPF Urine Casts PRESENT /LPF Urine Hyaline Casts 0-2 H /LPF Urine Mucus NEGATIVE /LPF Urine Culture Indicated NO Sodium Level 135 135-145 MMOL/L Potassium Level 4.2 3.6-5.0 MMOL/L Chloride Level 96 L 98-107 MMOL/L Carbon Dioxide Level 25 21-32 MMOL/L Anion Gap 14 5-14 MMOL/L Blood Urea Nitrogen 35 H 7-18 MG/DL Creatinine 1.13 0.60-1.30 MG/DL Estimat Glomerular Filtration Rate 54 BUN/Creatinine Ratio 31 Glucose Level 337 H 70-105 MG/DL Calcium Level 9.2 8.5-10.1 MG/DL Corrected Calcium 9.0 8.5-10.1 MG/DL Total Bilirubin 0.2 0.1-1.0 MG/DL Aspartate Amino Transf (AST/SGOT) 25 5-34 U/L Alanine Aminotransferase (ALT/SGPT) 17 0-55 U/L Alkaline Phosphatase 109 40-136 U/L Troponin I < 0.30 <0.30 NG/ML Total Protein 7.4 6.4-8.2 GM/DL Albumin 4.3 3.2-4.5 GM/DL Lipase 49 8-78 U/L Urine Opiates Screen NEGATIVE NEGATIVE Urine Oxycodone Screen NEGATIVE NEGATIVE Urine Methadone Screen NEGATIVE NEGATIVE Urine Propoxyphene Screen NEGATIVE NEGATIVE Urine Barbiturates Screen NEGATIVE NEGATIVE Ur Tricyclic Antidepressants Screen NEGATIVE NEGATIVE Urine Phencyclidine Screen NEGATIVE NEGATIVE Urine Amphetamines Screen NEGATIVE NEGATIVE Urine Methamphetamines Screen NEGATIVE NEGATIVE Urine Benzodiazepines Screen NEGATIVE NEGATIVE Urine Cocaine Screen NEGATIVE NEGATIVE Urine Cannabinoids Screen NEGATIVE NEGATIVE Serum Alcohol < 10 <10 MG/DL Influenza Type A (RT-PCR) Not Detected Not Detecte Influenza Type B (RT-PCR) Not Detected Not Detecte SARS-CoV-2 RNA (RT-PCR) Not Detected Not Detecte My Orders Orders - ELSY HAY MD Comprehensive Metabolic Panel (07/12/22 13:17) Lipase (07/12/22 13:17) Ua Culture If Indicated (07/12/22 13:17) Ed Iv/Invasive Line Start (07/12/22 13:17) Cbc With Automated Diff (07/12/22 13:17) Ct Abdomen/Pelvis W (07/12/22 13:17) Covid 19 Inhouse Test (07/12/22 13:17) Influenza A And B By Pcr (07/12/22 13:17) Isolation Central Supply Req (07/12/22 13:17) Alcohol (07/12/22 13:17) Drug Screen Stat (Urine) (07/12/22 13:17) Ct Head/Cervical Spine Wo (07/12/22 13:17) Ns Iv 1000 Ml (Sodium Chloride 0.9%) (07/12/22 13:20) Ondansetron Injection (Zofran Injectio (07/12/22 13:20) Pantoprazole Injection (Protonix Injecti (07/12/22 13:20) Ketorolac Injection (Toradol Injection) (07/12/22 13:20) Ekg Tracing (07/12/22 13:21) Troponin I Fs (07/12/22 13:21) Iohexol Injection (Omnipaque 350 Mg/Ml 1 (07/12/22 14:45) Received Contrast (Hold Metformin- Contr (07/12/22 14:45) Ns (Ivpb) (Sodium Chloride 0.9% Ivpb Bag (07/12/22 14:45) Fentanyl Inj (Sublimaze Injection) (07/12/22 15:33) Meclizine Tablet (Antivert Tablet) (07/12/22 15:33) Lactated Ringers (Lr 1000 Ml Iv Solution (07/12/22 16:27) Medications Given in ED Current Medications Medications Dose Ordered Sig/Lary Route Start Time Stop Time Status Last Admin Dose Admin Iohexol 100 ml ONCE ONCE IV 07/12/22 14:45 07/12/22 14:46 DC 07/12/22 14:43 80 ML Sodium Chloride 100 ml ONCE ONCE IV 07/12/22 14:45 07/12/22 14:46 DC 07/12/22 14:43 100 ML Vital Signs/I&O 07/12/22 07/12/22 13:05 16:46 Temp 36.9 36.9 Pulse 83 78 Resp 16 16 B/P (MAP) 140/68 (92) 132/76 Pulse Ox 98 98 O2 Delivery Room Air Room Air Capillary Refill : Progress Note #1: Progress Note Potential diagnosis of pancreatitis, stroke, brain tumor, abdominal cancer, myocardial infarction, electrolyte imbalance, dehydration, pyelonephritis, urinary tract infection, sepsis, anemia. Obtain peripheral IV access to check blood work for complete blood count looking for signs of anemia or elevated white count for infection, comprehensive metabolic profile for possible electrolyte imbalance or renal failure or hepatic failure or elevation of troponin for cardiac injury or elevation of lipase to indicate pancreatitis. Urinalysis to look for signs of infection and hydration level. CT scan of the head and cervical spine to look for signs of acute injury, mass, tumor, stroke, bleeding. CT scan of the abdomen and pelvis with IV contrast looking for pancreatitis, bowel perforation, mass, obstruction, blockage. Administered normal saline 1 L IV fluid bolus for hydration, Protonix 40 mg IV for gastritis, Zofran 4 mg IV for nausea and vomiting, Toradol 15 mg IV for headache and pain and inflammation. Advised patient to stay n.p.o. while waiting on test results. Electrocardiogram to look for acute signs of ischemia or arrhythmia. On my initial review personal interpretation of her electrocardiogram she shows a sinus rhythm with heart rate of 77 bpm. She does have a left bundle branch block but no acute ST elevation. Progress Note #2: Time: 14:28 Progress Note On my personal interpretation and review of the CT scan of the head and cervical spine without contrast I did not see any acute fracture intracranial hemorrhage or bleed or mass. The CT scan of the abdomen and pelvis with IV contrast did not show any obvious obstruction or blockage. CBC showed elevated WBC count for possible infection or stress reaction. Comprehensive metabolic profile shows elevated glucose to go with her eating [place] with crackers just prior to coming to the ED. Lipase and liver enzymes were not elevated to indicate pancreatitis or hepatitis. Urine was concentrated but no definite infection as she did not have Leukocyte esterace, nitrites, WBC. UA did have bacteria and 3 + Glucose and trace ketones with elevated specific gravity 1.025 to indicate some dehydration and high glucose to go with 337 on me tabolic profile. Patient reports dizziness might be slightly improved after fluids but epigastric pain persists and feels worse as it now is radiating to her back. She has had no emesis or diarrhea here in the ED. Progress Note #3: Time: 15:30 Progress Note I have reviewed the CT scan findings for the head and cervical spine as well as abdomen and pelvis with patient and family. The radiologist did not see any acute intracranial hemorrhage or mass and no fractures. On the abdomen and pelvis they did not see a obstruction or blockage and no free air but she had some continued subcentimeter retroperitoneal lymphadenopathy seen on April 05, 2022. They felt this might be slightly increased since March 2022. There is still no pathology on the scan to account for the lymphadenopathy. As patient was stating that she had worsening epigastric pain and only slightly improved dizziness will order fentanyl 25 mcg IV x1, meclizine 25 mg p.o. x1. Will discuss with Dr. Alcala the on-call doctor for [facility] and see about possible admission for her worsening abdominal pain. She may need a consult with the surgeon on-call for possible endoscopy to further evaluate her pain as well as the lymphadenopathy. 1611 D/w Dr. Alcala, technician semiconductor development physician for [facility]. I reviewed with her the patient presentation as well as her labs and CT scan findings. With her having continued dizziness and worsening abdominal pain with retroperitoneal lymphadenopathy will admit for observation status to continue IV fluids and pain control and to ensure she can keep oral intake down. She felt the patient was appropriate for admit to observation status at [facility] to her service. She will let the staff at [facility] know and requested we wait until about 1630 before calling nurse report and get room assignment from the staff at [facility]. Will order LR to continue hydration at 100 ml/hr for maintenance fluids for the patient. When updating patient and family they requested to go POV as they stated that insurance does not cover them to go in ambulance. Patient and family stated understanding that with out having continued monitoring she could have worsening symptoms or acute changes with her pain and dizziness. She still wanted to go POV so she signed a declination form stating she declined having ambulance transport. Her IV was discontinued and she was advised to go directly to [facility] for admit and not to be eating or drinking until she gets to the hospital. They will restart IV and get orders from Dr. Alcala to continue her care as observation patient. Will not administer LR since patient leaving to go to [facility] by private vehicle and IV being discontinued ECG Initial ECG Impression Date: Jul 12, 2022 Initial ECG Impression Time: 13:30 Initial ECG Rate: 77 Initial ECG Rhythm: Normal Sinus Initial ECG Comparisson: Unchanged (04/05/2022) Comment On my personal interpretation and review her electrocardiogram shows normal sinus rhythm with a heart rate of 77 bpm. AK interval 155 ms. She has a left axis deviation and left bundle branch block. No acute ST elevation. QT interval 434 ms with a QTc interval of 466 ms. Overall appears similar to tracing from 04/05/2022. Diagnostic Imaging Diagonstic Imaging: CT Plain Films/CT/US/NM/MRI: abdomen, pelvis Comments [facility]. [place], [place] NAME: AGUILAR MAYNARD [facility] REC#: [id number] PT STATUS: REG ER : 1960 PHYSICIAN: ELSY HAY MD ADMIT DATE: 07/12/22/ER FS Draft Date of Exam:07/12/22 CT ABDOMEN/PELVIS W PROCEDURE: CT abdomen and pelvis with contrast. TECHNIQUE: Multiple contiguous axial images were obtained through the abdomen and pelvis after administration of intravenous contrast. Auto Exposure Controls were utilized during the CT exam to meet ALARA standards for radiation dose reduction. All CT scans use one or more of the following dose optimizing techniques: Automated exposure control, MA and/or KvP adjustment based on patient size and exam type or iterative reconstruction. INDICATION: Epigastric pain. Nausea, vomiting, and diarrhea. History of pancreatitis. COMPARISON: 04/05/2022. FINDINGS: The included portions of the lung bases are clear. There is calcification of the mitral valve. CT ABDOMEN: Small bowel loops are nondistended. Moderate air and stool is seen scattered throughout the colon. Normal appendix cannot be adequately identified, but there is no pericecal inflammation. Multiple benign-appearing bilateral renal cysts are noted. Punctate nonobstructive renal calculi are also identified bilaterally. Ureters are difficult to follow in a contiguous fashion, but no calculi are seen along the expected course of either ureter. Additionally, there is no hydroureteronephrosis or other evidence of obstruction. No suspicious renal masses are seen. The adrenal glands, spleen, pancreas, and liver have a normal CT appearance. There is no loculated fluid collection, free fluid, or free air within the abdomen. Several scattered prominent appearing, yet subcentimeter retroperitoneal lymph nodes are noted. This may be slightly more prominent compared to prior exam. No abnormal mesenteric adenopathy is seen. There is moderate diffuse calcified and noncalcified aortic and arterial atherosclerosis. Osseous structures show no acute abnormalities. CT PELVIS: Urinary bladder is unopacified. No calculi are seen within the urinary bladder. There are moderate bulky calcifications of the uterus likely on the basis of degenerative fibroids and vascular disease. There is no loculated fluid collection, free fluid, or free air within the pelvis. No abnormal lymph nodes are seen. Osseous structures show no acute abnormalities. IMPRESSION: 1. Multiple prominent appearing, yet subcentimeter retroperitoneal para-aortic lymph nodes. Again, these appear slightly more prominent when compared to 04/05/2022, but etiology and clinical significance remain indeterminate. 2. Multiple bilateral nonobstructive renal calculi. Dictated on workstation # [id number] Dict: 07/12/22 1459 Trans: 07/12/22 1513 [id number] Interpreted by: BRITT PERRY MD Electronically signed by: Reviewed: Reviewed by Me (I reviewed result at 1521) Diagonstic Imaging: CT Plain Films/CT/US/NM/MRI: c-spine, head Comments NAME: AGUILAR MAYNARD [facility] REC#: [id number] PT STATUS: REG ER : 1960 PHYSICIAN: ELSY HAY MD ADMIT DATE: 07/12/22/ER FS Signed Date of Exam:07/12/22 CT HEAD/CERVICAL SPINE WO PROCEDURE: CT head and CT cervical spine without contrast. TECHNIQUE: Multiple contiguous axial images were obtained through the brain and cervical spine without the use of intravenous contrast. Sagittal and coronal reformations through the cervical spine were then performed. Auto Exposure Controls were utilized during the CT exam to meet ALARA standards for radiation dose reduction. INDICATION: Head and neck pain. Dizziness. COMPARISON: None. FINDINGS: CT head: No large acute territorial ischemia, mass, or hemorrhage. No midline shift or mass effect. Senescent mineralization is seen in the bilateral basal ganglia. The ventricles, cortical sulci, and basilar cisterns are patent and unremarkable. The calvarium is intact. The visualized paranasal sinuses are clear. CT cervical spine: No acute fracture or dislocation is seen in the cervical spine. No focal osseous lesions. Vertebral body heights are well-maintained. The craniocervical junction is well-maintained. Mild degenerative changes are seen in the cervical spine with disc osteophyte complexes and uncovertebral arthropathy. Soft tissues of the neck are unremarkable. The included lungs are clear. IMPRESSION: 1. No hemorrhage or focal intra-axial mass. No CT evidence of large acute territorial ischemia. 2. No acute fracture or dislocation in the cervical spine. Dictated by: Dictated on workstation # [id number] Dict: 07/12/22 1456 Trans: 07/12/22 1502 [facility] [id number] Interpreted by: JACKELIN BARFIELD DO Electronically signed by: JACKELIN BARFIELD DO 07/12/22 1502 Reviewed: Reviewed by Me (I reviewed Radiologist report at 1514) Departure Impression Primary Impression: Dizziness Additional Impressions: Epigastric abdominal pain Nausea vomiting and diarrhea Retroperitoneal lymphadenopathy Disposition: [facility] Condition: Stable Transfer Transfer Reason: Exceeds level of care (Hospital admit for further evaluation beyond what is available in ED) Time Spoke to Accepting Phy: 16:15 Transfer Progress Notes Discussed with Dr. Alcala about the patient since she follows with Dr. See at [facility]. Dr. Alcala is technician semiconductor development for [facility] providers. Reviewed findings of continued epigastric pain and dizziness with nausea despite having multiple medications administered. She had some retroperitoneal lymphadenopathy without a specific source to cause it. She had elevated glucose to go along with poor control of her diabetes. Dr. Alcala accepted the patient for admission and thought she would be appropriate for [facility]. Transfer Facility: [facility] Method of Transfer: EMS Departure-Patient Inst. Referrals: SADAF SEE MD (PCP) Primary Care Physician ELSY HAY MD Jul 12, 2022 13:28
[2022-07-12 13:32] LABS: BILIRUBIN,URINE NEGATIVE (NEGATIVE); CLARITY,URINE CLEAR; COLOR,URINE YELLOW; GLUCOSE, URINE (UA) 3+ (NEGATIVE); KETONES,URINE TRACE (NEGATIVE); LEUKOCYTE ESTERASE ,URINE NEGATIVE (NEGATIVE); NITRITE,URINE NEGATIVE (NEGATIVE); PH,URINE 5.5 (5-9); PROTEIN,URINE TRACE (NEGATIVE)
[2022-07-12 13:40] LABS: BACTERIA,URINE MODERATE /HPF; HYALINE CASTS, URINE 0-2 /LPF; SQUAMOUS EPITHELIAL CELL,UR RARE /HPF; WBC,URINE 0-2 /HPF
[2022-07-12 13:42] LABS: AMPHETAMINE SCREEN, URINE NEGATIVE (NEGATIVE); BENZODIAZEPINES SCREEN URINE NEGATIVE (NEGATIVE); CANNABINOID SCREEN, URINE NEGATIVE (NEGATIVE); COCAINE SCREEN URINE NEGATIVE (NEGATIVE); OPIATE SCREEN URINE NEGATIVE (NEGATIVE)
[2022-07-12 13:43] LABS: BARBITURATE SCREEN URINE NEGATIVE (NEGATIVE); METHADONE STAT NEGATIVE (NEGATIVE); OXYCODONE STAT NEGATIVE (NEGATIVE); PROPOXYPHENE STAT NEGATIVE (NEGATIVE); TRICYCLIC ANTIDEPRESSANTS SCRE NEGATIVE (NEGATIVE)
[2022-07-12 13:55] LABS: ALANINE AMINOTRANSFERASE 17 U/L (0-55); ALKALINE PHOSPHATASE 109 U/L (40-136); BILIRUBIN,TOTAL 0.2 MG/DL (0.1-1.0); BUN/CREATININE RATIO 31; CALCIUM 9.2 MG/DL (8.5-10.1); CARBON DIOXIDE 25 MMOL/L (21-32); CHLORIDE 96 MMOL/L (98-107); CREATININE SERUM 1.13 MG/DL (0.60-1.30); GFR ESTIMATED 54; GLUCOSE 337 MG/DL (70-105); POTASSIUM 4.2 MMOL/L (3.6-5.0); SODIUM 135 MMOL/L (135-145)
[2022-07-12 13:56] LABS: ALBUMIN 4.3 GM/DL (3.2-4.5); LIPASE 49 U/L (8-78); TOTAL PROTEIN 7.4 GM/DL (6.4-8.2)
[2022-07-12] MEDS ORDERED: IOHEXOL 350 MG/ML 100 ML (OMNIPAQUE 350) VIAL IV ONE (14:45)
[2022-07-12] MEDS ORDERED: HOLD METFORMIN - RECEIVED CONTRAST 20 ML VIAL IV SCH (14:45)
[2022-07-12] MEDS ORDERED: NS 100 ML (IVPB) BAG IV ONE (14:45)
--- NOTE | 2022-07-12 15:01 | Diagnostic Imaging Report ---
PROCEDURE: CT head and CT cervical spine without contrast. TECHNIQUE: Multiple contiguous axial images were obtained through the brain and cervical spine without the use of intravenous contrast. Sagittal and coronal reformations through the cervical spine were then performed. Auto Exposure Controls were utilized during the CT exam to meet ALARA standards for radiation dose reduction. INDICATION: Head and neck pain. Dizziness. COMPARISON: None. FINDINGS: CT head: No large acute territorial ischemia, mass, or hemorrhage. No midline shift or mass effect. Senescent mineralization is seen in the bilateral basal ganglia. The ventricles, cortical sulci, and basilar cisterns are patent and unremarkable. The calvarium is intact. The visualized paranasal sinuses are clear. CT cervical spine: No acute fracture or dislocation is seen in the cervical spine. No focal osseous lesions. Vertebral body heights are well-maintained. The craniocervical junction is well-maintained. Mild degenerative changes are seen in the cervical spine with disc osteophyte complexes and uncovertebral arthropathy. Soft tissues of the neck are unremarkable. The included lungs are clear. IMPRESSION: 1. No hemorrhage or focal intra-axial mass. No CT evidence of large acute territorial ischemia. 2. No acute fracture or dislocation in the cervical spine. Dictated by: Dictated on workstation # [id number]
--- NOTE | 2022-07-12 15:14 | Diagnostic Imaging Report ---
PROCEDURE: CT abdomen and pelvis with contrast. TECHNIQUE: Multiple contiguous axial images were obtained through the abdomen and pelvis after administration of intravenous contrast. Auto Exposure Controls were utilized during the CT exam to meet ALARA standards for radiation dose reduction. All CT scans use one or more of the following dose optimizing techniques: Automated exposure control, MA and/or KvP adjustment based on patient size and exam type or iterative reconstruction. INDICATION: Epigastric pain. Nausea, vomiting, and diarrhea. History of pancreatitis. COMPARISON: 04/05/2022. FINDINGS: The included portions of the lung bases are clear. There is calcification of the mitral valve. CT ABDOMEN: Small bowel loops are nondistended. Moderate air and stool is seen scattered throughout the colon. Normal appendix cannot be adequately identified, but there is no pericecal inflammation. Multiple benign-appearing bilateral renal cysts are noted. Punctate nonobstructive renal calculi are also identified bilaterally. Ureters are difficult to follow in a contiguous fashion, but no calculi are seen along the expected course of either ureter. Additionally, there is no hydroureteronephrosis or other evidence of obstruction. No suspicious renal masses are seen. The adrenal glands, spleen, pancreas, and liver have a normal CT appearance. There is no loculated fluid collection, free fluid, or free air within the abdomen. Several scattered prominent appearing, yet subcentimeter retroperitoneal lymph nodes are noted. This may be slightly more prominent compared to prior exam. No abnormal mesenteric adenopathy is seen. There is moderate diffuse calcified and noncalcified aortic and arterial atherosclerosis. Osseous structures show no acute abnormalities. CT PELVIS: Urinary bladder is unopacified. No calculi are seen within the urinary bladder. There are moderate bulky calcifications of the uterus likely on the basis of degenerative fibroids and vascular disease. There is no loculated fluid collection, free fluid, or free air within the pelvis. No abnormal lymph nodes are seen. Osseous structures show no acute abnormalities. IMPRESSION: 1. Multiple prominent appearing, yet subcentimeter retroperitoneal para-aortic lymph nodes. Again, these appear slightly more prominent when compared to 04/05/2022, but etiology and clinical significance remain indeterminate. 2. Multiple bilateral nonobstructive renal calculi. Dictated by: Dictated on workstation # [id number]
[2022-07-12] MEDS ORDERED: MECLIZINE 25 MG (ANTIVERT) TAB PO STA (15:33)
[2022-07-12] MEDS ORDERED: fentaNYL INJ 100 MCG/2 ML AMP IVP STA (15:33)
[2022-07-12] MEDS ORDERED: LACTATED RINGERS 1,000 ML IV STA (16:27)
[2022-07-12 16:46] VITALS: BP 132/76
== END 2022-07-12 16:47 | disposition short-term general hospital (02) ==
LOC: EDUNIT# 13:00 → ER FS 13:02
DX: R42 Dizziness and giddiness (principal); R10.13 Epigastric pain; R11.2 Nausea with vomiting, unspecified; R19.7 Diarrhea, unspecified; R59.1 Generalized enlarged lymph nodes; I44.7 Left bundle-branch block, unspecified; E11.9 Type 2 diabetes mellitus without complications; Z79.4 Long term (current) use of insulin; Z87.19 Personal history of other diseases of the digestive system; Z90.49 Acquired absence of other specified parts of digestive tract; Z20.822 Contact with and (suspected) exposure to COVID-19
CPT/HCPCS: 36415; 70450; 72125; 74177; 80053; 80306; 81000; 83690; 84484; 85025; 87636; G0480; 80320; 93005; Q9967

== ENCOUNTER → 2022-10-06 | Outpatient (CLI) | payer BC ==
[~2022-10-06] MED LIST changes: +CATHETER FLUSH 10 ML SYR IVP PRN; +REGADENOSON 0.4 MG/5 ML SYR (LEXISCAN) IV ONE
[2022-10-06 15:26] VITALS: BP 171/76
--- NOTE | 2022-10-06 15:26 | Cardiology Stress Test Report ---
Stress Test Report Date of Procedure/Referring: Date of Procedure: October 06, 2022 PCP Sadaf Loco MD Admitting Physician Admitting Physician: Attending Physician: Sonia Mayorga MD Baseline Heart Rate: 87 Baseline Blood Pressure: Blood Pressure Systolic: 171 Blood Pressure Diastolic: 76 Baseline EKG: Baseline EKG: LBBB Summary After explaining the procedure to the patient, she signed a consent and then br ought to the stress nuclear laboratory. Patient received 0.4 mg Lexiscan for stress test, ECG, heart rate and blood pressure were monitored continuously. Resting and stress dose of radio tracer were injected, imaging was acquired and reviewed in short axis, horizontal long axis and vertical long axis views. TID: 1.22 SSS: 1 SDS: 1 EF: 57 Patient tolerated Lexiscan well Baseline left bundle branch block persisted during test Borderline transient ischemic dilatation of 1.22 No significant ischemia or infarction noted on SPECT images Normal left ventricular size, ejection fraction 57% Copy Copies To 1: SADAF LOCO MD, BASHAR J MD October 06, 2022 15:26
== END ==
LOC: CARD 09:51
PROVIDERS: ATTEND Internal Medicine Cardiovascular Disease
DX: I44.7 Left bundle-branch block, unspecified (principal); I10 Essential (primary) hypertension; I25.10 Atherosclerotic heart disease of native coronary artery without angina pectoris
CPT/HCPCS: 78452; 93017; A9502

== ENCOUNTER → 2022-10-12 | Outpatient (CLI) | payer BC ==
[~2022-10-12] MED LIST changes: -CATHETER FLUSH 10 ML SYR IVP PRN; -REGADENOSON 0.4 MG/5 ML SYR (LEXISCAN) IV ONE
== END ==
LOC: CARDFS 08:50
PROVIDERS: ATTEND Internal Medicine Cardiovascular Disease
DX: I11.9 Hypertensive heart disease without heart failure (principal); I34.0 Nonrheumatic mitral (valve) insufficiency; I25.10 Atherosclerotic heart disease of native coronary artery without angina pectoris
CPT/HCPCS: 93306

== ENCOUNTER 2022-10-20 12:01 | Day surgery (SDC) | payer BC ==
[2022-10-20] VITALS (8 sets, daily range): BP systolic 114–144; BP diastolic 58–70
[~2022-10-20] VITALS: Ht 152 cm; Wt 53.9 kg
[2022-10-20] MEDS ORDERED: NS IV 1000 ML 1,000 ML IV ONE (12:15)
[2022-10-20] MEDS ORDERED: LIDOCAINE 1% INJ 20 ML VIAL ONE (12:20)
[2022-10-20] MEDS ORDERED: NS IV 1000 ML 1,000 ML ONE (12:20)
[2022-10-20] MEDS ORDERED: HEParin (CATH LAB) 2,000 ML IV ONE (12:20)
[2022-10-20 12:47] LABS: BILIRUBIN,URINE NEGATIVE (NEGATIVE); CLARITY,URINE CLEAR; COLOR,URINE YELLOW; GLUCOSE, URINE (UA) NEGATIVE (NEGATIVE); KETONES,URINE NEGATIVE (NEGATIVE); LEUKOCYTE ESTERASE ,URINE NEGATIVE (NEGATIVE); NITRITE,URINE NEGATIVE (NEGATIVE); PH,URINE 5.5 (5-9); PROTEIN,URINE NEGATIVE (NEGATIVE)
[2022-10-20 12:50] LABS: HEMATOCRIT 39 % (35-52); HEMOGLOBIN 12.9 g/dL (11.5-16.0); MEAN CORPUSCULAR HEMOGLOBIN 28 pg (25-34); MEAN CORPUSCULAR HGB CONC 33 g/dL (32-36); MEAN CORPUSCULAR VOLUME 84 fL (80-99); PLATELET COUNT 278 10^3/uL (130-400)
[2022-10-20 12:53] LABS: BACTERIA,URINE NEGATIVE /HPF; HYALINE CASTS, URINE RARE /LPF; WBC,URINE RARE /HPF
[2022-10-20 13:00] LABS: INR 0.9 (0.8-1.4)
--- NOTE | 2022-10-20 13:03 | Diagnostic Imaging Report ---
CLINICAL INDICATION: Patient with chest pain. EXAM: Portable chest x-ray, upright view. COMPARISON: Chest x-ray dated 03/23/2020. FINDINGS: Lungs/pleura: Lungs are clear. There is no pneumothorax. There is no pleural effusion. Mediastinum: Unremarkable. Pulmonary vasculature: Unremarkable. Heart: Unremarkable. Bones/extrathoracic soft tissue: There are small degenerative spurs involving the thoracic spine. IMPRESSION: There is no radiographic evidence of acute cardiopulmonary process. Dictated by: Dictated on workstation # [id number]
[2022-10-20 13:08] LABS: ALANINE AMINOTRANSFERASE 27 U/L (0-55); ALBUMIN 4.7 GM/DL (3.2-4.5); ALKALINE PHOSPHATASE 108 U/L (40-136); BILIRUBIN,TOTAL 0.4 MG/DL (0.1-1.0); BUN/CREATININE RATIO 31; CALCIUM 9.9 MG/DL (8.5-10.1); CARBON DIOXIDE 25 MMOL/L (21-32); CHLORIDE 103 MMOL/L (98-107); CHOLESTEROL 328 MG/DL (< 200); CREATININE SERUM 1.12 MG/DL (0.60-1.30); GFR ESTIMATED 55; GLUCOSE 152 MG/DL (70-105); HDL CHOLESTEROL 62 MG/DL (40-60); POTASSIUM 4.3 MMOL/L (3.6-5.0); SODIUM 138 MMOL/L (135-145); TOTAL PROTEIN 8.4 GM/DL (6.4-8.2); TRIGLYCERIDES 257 MG/DL (<150); VLDL CHOLESTEROL 51 MG/DL (5-40)
[2022-10-20] MEDS ORDERED: BISM262T19 PO (13:27)
[2022-10-20] MEDS ORDERED: LISI20TA26 PO (13:27)
[2022-10-20] MEDS ORDERED: AMLO-251 PO (13:27)
[2022-10-20] MEDS ORDERED: ONDA8TAB13 SL (13:27)
[2022-10-20] MEDS ORDERED: FLUT9.9S NS (13:27)
[2022-10-20] MEDS ORDERED: INSU100I34 SQ (13:27)
[2022-10-20] MEDS ORDERED: GLIM2TAB4 PO (13:27)
[2022-10-20] MEDS ORDERED: EUCA1LOZ28 MM (13:27)
[2022-10-20] MEDS ORDERED: ASPI-999 PO (13:27)
[2022-10-20] MEDS ORDERED: HYDR25TA4 PO (13:27)
[2022-10-20] MEDS ORDERED: CETI10TA49 PO (13:27)
[2022-10-20] MEDS ORDERED: MIDAZOLAM 5 MG/5 ML (VERSED) VIAL ONE (13:34)
[2022-10-20] MEDS ORDERED: fentaNYL INJ 100 MCG/2 ML AMP ONE (13:34)
[2022-10-20] MEDS ORDERED: HEParin 1000 UNIT/ML (10ML VIAL) FOR BOLUS ONE (13:34)
[2022-10-20] MEDS ORDERED: VERAPAMIL 5 MG/2 ML (CALAN) VIAL IV ONE (13:34)
[2022-10-20] MEDS ORDERED: NITRO DRIP 25000 MCG/D5W 0 ML IV ONE (13:34)
--- NOTE | 2022-10-20 14:36 | Cardiac Procedure Note-CS/ASA ---
Pre-Procedure Note Pre-Op Procedure Note Date of Available H&P: October 14, 2022 Date H&P Reviewed: October 20, 2022 Time H&P Reviewed: 13:00 History & Physical: H&P Reviewed, Patient Examed, No changes noted Pre-Operative Diagnosis: CAD Moderate Sedation PreProcedure Time 13:00 ASA Score 3 Airway Lungs Heart ASA score ASA 1: a normal healthy patient ASA 2: a patient with a mild systemic disease (mid diabetes, controlled hypertension, obesity ASA 3: a patient with a severe systemic disease that limits activity (angina, COPD, prior Myocardial infarction) ASA 4: a patient with an incapacitating disease that is a constant threat to life (CHF, renal failure) ASA 5: a moribund patient not expected to survive 24 hrs. (ruptured aneurysm) ASA 6: a declared brain- patient whose organs are being harvested. For emergent operations, add the letter E after the classification Mallampati Classification Grade 3 Sedation Plan Analgesia, Amnesia, Plan communicated to team members, Discussed options with patient/fam, Discussed risks with patient/fam The patient is an appropriate candidate to undergo the planned procedure, sedation, and anesthesia. The patient immediately re-assessed prior to indication. JENI SU MD October 20, 2022 14:36
[2022-10-20] MEDS ORDERED: ATOR10TA PO (14:37)
--- NOTE | 2022-10-20 14:38 | Discharge Inst-Post CATH ---
Discharge Inst-CATH/EP Problems Reviewed?: Yes Post Cardiac Cath/EP D/C Inst Follow Up/Plan Appointment with Dr. Mayorga's office in 2 to 4 weeks <b>CARDIAC CATH/EP PROCEDURE DISCHARGE INSTRUCTIONS</b> ACTIVITY * Go Home directly and rest. * Limit activity of the leg (or wrist if it was used) for 7 days including aer obics, swimming, jogging, bicycling, etc. * Restrict stair-climbing for 7 days if possible, if not, climb up with your non-cath leg, then bring together on the same step. * Avoid lifting, pushing, pulling or excessive movement of the affected extremi ty for 7 days. * Customary sexual activity may be resumed after 2 days-use caution not to use a position that strains or causes pain to the affected extremity. * No driving for 24 hours. * NO SMOKING. * Avoid straining for bowel movements for 7 days. * Gentle walking on level ground is allowed. * Returning to work will depend on the type of procedure and the results. Your doctor will discuss this with you. CALL YOUR DOCTOR FOR ANY OF THE FOLLOWING: *If bleeding from the puncture site occurs- Apply gentle pressure to site with clean cloth and call your doctor or EMS. * If a knot or lump forms under the skin, increases in size, or causes pain. * If bruising appears to be worsening or moving further down your leg instead of disappearing. * Temperature above 101 F. CARE OF YOUR GROIN INCISION; * Bruising or purple discoloration of the skin near the puncture site is common. * You may shower only, no bathtub bathing for 5 days. Be careful to avoid slipping as your leg may feel stiff. * If a closure device was used on your femoral artery, please see the attached guide regarding care of the device and your leg. * Leave dressing on FOR 24 hours. CARE OF YOUR WRIST INCISION; * Bruising or purple discoloration of the skin near the puncture site is common. * You may shower. * DO NOT submerge wrist. * Leave dressing on FOR 24 hours. JENI MAYORGA MD October 20, 2022 14:38
--- NOTE | 2022-10-20 14:41 | Cardiac Cath Report ---
Cardiac Cath Report Physician (s)/[employer] (s) Physician JENI SU MD Pre-Procedure Diagnosis Pre-Procedure Diagnosis: CAD Post-Procedure Note Procedure Start Date: October 20, 2022 Procedure Start Time: 14:38 Name of Procedure: Left heart catheterization Selective bilateral renal angiogram Findings/Procedure Note PROCEDURE NOTE: 62-year-old lady with abnormal stress test, transient ischemic dilatation in addition to labile hypertension. Patient is scheduled for left heart catheterization and selective bilateral renal angiogram. After explaining the procedure to the patient, all pros and cons were explained, all questions were answered. The patient signed the consent and then she was placed in the cardiac catheterization laboratory. Groin was prepped in SL fashion local anesthesia was used. Sheath placed in the right femoral artery. Clarisa' right and left catheter were used to access the coronary system. Clarisa right catheter was prolapsed to the left ventricular cavity, pressure was measured, pullback LV to aorta was done, engaged the right renal artery and angiogram was done then turned and engaged the left renal artery and selective renal artery angiogram was done. At the end of the procedure the sheath was removed. Closure device was deployed FINDINGS: Hemodynamics LV 103/8, end-diastolic pressure of 8 Aorta 114/52 mean of 76 ANATOMY: Left Main has no obstructive disease Left Anterior Descending is slightly tortuous with 20% stenosis in the proximal first diagonal artery nonobstructive disease Left Circumflex has no significant obstructive disease Right Coronary Artery is dominant artery with 30 to 40% proximal right coronary artery stenosis nonobstructive disease LV Gram was not done, pressure was measured Selective right renal angiogram showed no significant obstructive disease in the right renal artery Selective left renal angiogram was done showing no significant obstructive disease in the left renal artery CONCLUSION: Mild to moderate coronary artery disease nonobstructive disease Normal left ventricular end-diastolic pressure Normal bilateral renal arteries DISCUSSION AND RECOMMENDATION: Medical therapy is recommended no intervention is warranted Anesthesia Type: Conscious Sedation Estimated blood loss (mL): 10 ml Contrast Amount: 35 ml Post-Procedure Diagnosis Post-operative diagnosis: Chest pain Coronary artery disease Labile hypertension Hyperlipidemia JENI SU MD October 20, 2022 14:41
[2022-10-20] MEDS ORDERED: PATIENT MAY USE OWN MEDS, ALL PO SCH (14:45)
[2022-10-20] MEDS ORDERED: NS IV 1000 ML 1,000 ML IV SCH (14:45)
== END 2022-10-20 20:27 ==
LOC: CATH 12:01 → CSD 15:00 → CATH 20:27
PROVIDERS: ATTEND Internal Medicine Cardiovascular Disease
DX: I25.10 Atherosclerotic heart disease of native coronary artery without angina pectoris (principal); R94.39 Abnormal result of other cardiovascular function study; R06.09 Other forms of dyspnea; R07.89 Other chest pain; I11.9 Hypertensive heart disease without heart failure; I34.0 Nonrheumatic mitral (valve) insufficiency; E78.2 Mixed hyperlipidemia; E11.9 Type 2 diabetes mellitus without complications; I44.7 Left bundle-branch block, unspecified; Z79.899 Other long term (current) drug therapy; Z87.19 Personal history of other diseases of the digestive system; Z79.84 Long term (current) use of oral hypoglycemic drugs
CPT/HCPCS: 36415; 71045; 80053; 80061; 81000; 82947; 84443; 85027; 85610; 85730; 87081; 93005